=== PATIENT | female | born 1960 | race American Indian/Alaskan Native ===

== ENCOUNTER 2021-03-06 23:22 | Inpatient (IN) | payer MEDICARE ==
--- NOTE | 2021-03-06 23:26 | Emergency Department Report ---
ED Neuro Deficit HPI - General Chief Complaint: Weakness Stated Complaint: STROKE LIKE SYMPTOMS Time Seen by Provider: 03/06/21 23:23 Source: patient, family, EMS (Verbal report received from emergency medical services. EMS documentation not available at time of chart dictation ), RN notes reviewed Mode of arrival: Stretcher Limitations: Altered Mental Status, Physical Limitation - History of Present Illness Initial Comments: The patient was evaluated in the emergency department for symptoms described in the history of present illness. He/she was evaluated in the context of the global COVID-19 pandemic, which necessitated consideration that the patient might be at risk for infection with the virus that causes COVID-19. Institutional protocols and algorithms that pertain to the evaluation of patients at risk for COVID-19 are in a state of rapid change based on information released by regulatory bodies including the CDC and federal and stat e organizations. These policies and algorithms were followed during the patient's care in the emergency department. Please note that these policies, procedures and recommendations changed on a rapid basis. History primarily obtained by speaking to patient's daughter, Ms. Gomez; [phone] (patient also has a son, Mr. Delarosa/[phone].) The patient is a 61-year-old female. Her past medical history includes bilateral upper extremity humerus fractures as per EMS, hypertension, high cholesterol and seizure. Current seizure medications include gabapentin, 300, twice daily, Keppra, 1 g, uncertain frequency, phenytoin, 300 mg daily, valproic acid, 750 mg every 8 hours, and Vimpat, 200 mg, of uncertain frequency. The patient is brought to the hospital by emergency medical services today as a possible code stroke. As per her daughter, the patient was in her usual state of health today, when she had an unwitnessed seizure. The patient's last known well time as per the daughter is not o'clock p.m. EMS tells us that patient's last known well time is 1:00 PM. The patient's daughter states that the patient had a seizure, and afterwards, became altered and poorly responsive. She states that prior to the seizure, the patient has had no headache, fever, nausea, vomiting or diarrhea. The patient is COVID-19 vaccinated. The patient has been living with her daughter for the past month. The patient's daughter states that the patient's previous seizure was a few months ago. The patient was reportedly admitted to [facility] a few months ago for seizures. The patient herself is awake, but altered. She is not able to describe the qualitative nature of symptoms, exacerbating factors, relieving factors or aggravating factors. Of note, when examined, patient withdraws and moves 4 extremities vigorously in response to pinch and noxious stimuli. EMS reports normal Accu-Chek in the field. -: This evening Location: speech, right arm, right leg, altered Presenting Symptoms: Present: Altered Mental Status History of same: Yes Severity: Unable to Determine - Related Data Allergies/Adverse Reactions: Allergies Allergy/AdvReac Type Severity Reaction Status Date / Time No Known Allergies Allergy Verified 03/07/21 01:01 ED Review of Systems ROS: Stated complaint: STROKE LIKE SYMPTOMS Other details as noted in HPI Comment: Unobtainable due to pts medical conditions (Review of systems as per daughter) Constitutional: denies: fever Respiratory: cough (Chronic) Cardiovascular: denies: syncope Gastrointestinal: denies: nausea, vomiting, diarrhea Genitourinary: as per HPI Neurological: confusion ED Neuro Physical Exam - General Limitations: Altered Mental Status, Physical Limitation General appearance: anxious, in distress, obese Suspected Stroke: No - Head Head exam: Present: atraumatic, normocephalic - Eye Eye exam: Present: normal appearance, EOMI - ENT ENT exam: Present: normal exam, normal orophraynx, mucous membranes moist, normal external ear exam, other (Patient has poor dentition) - Neck Neck exam: Present: normal inspection, full ROM. Absent: tenderness, meningismus - Respiratory Respiratory exam: Present: rhonchi. Absent: wheezes, rales, stridor - Cardiovascular Cardiovascular Exam: Present: regular rate, normal rhythm, normal heart sounds. Absent: bradycardia, tachycardia, irregular rhythm, systolic murmur, diastolic murmur, rubs, gallop - GI/Abdominal GI/Abdominal exam: Present: soft. Absent: distended, tenderness, guarding, rebound, rigid, pulsatile mass - Extremities Exam Extremities exam: Present: full ROM, other (2+ pulses noted in the bilateral upper and lower extremities. There is no pelvic instability.). Absent: normal inspection (Chronic appearing deformities to the bilateral upper extremities), tenderness, calf tenderness - Back Exam Back exam: Present: normal inspection. Absent: tenderness, CVA tenderness (R), CVA tenderness (L), paraspinal tenderness, vertebral tenderness - Neurological Exam Neurological exam: Present: altered, other (The patient is awake. The patient moves 4 extremities. Sensation is intact to pinch in 4 extremities. Uncertain if left-sided facial droop.) - NIHSS Assessment Interval: Baseline 1a. Level of Consciousness: arousable/minor stimuli 1b. LOC Questions: answers no questions correctly 1c. LOC Commands: performs no tasks correctly 2. Best Gaze: normal (Unable to assess) 3. Visual: no visual loss (Blinks in response to threat) 4. Facial Palsy: minor paralysis (Left-sided paralysis) 5b. Motor Arm Right: drift 5a. Motor Arm Left: drift 6a. Motor Leg Left: drift 6b. Motor Leg Right: drift 7. Limb Ataxia: amputation (Unable to assess) 8. Sensory: mild/moderate sensory loss 9. Best Language: mild/moderate aphasia 10. Dysarthria: mild/moderate dysarthria 11. Extinction/Inattention: visual/tactile inattention Total Score: 14 Stroke Severity: Moderate Stroke - Psychiatric Psychiatric exam: Present: normal affect, normal mood - Skin Skin exam: Present: warm, dry, intact, normal color. Absent: rash ED Course Vital Signs 03/07/21 00:30 Temperature 95.9 F L Pulse Rate 78 Respiratory 18 Rate Blood Pressure 154/116 [Left] O2 Sat by Pulse 100 Oximetry - Reevaluation(s) Reevaluation #1: 03/06/21 23:47 Differential diagnosis, including but not limited to: Seizure, postictal state, pneumonia, urinary tract infection, subtherapeutic AED, subacute stroke, electrolyte derangement Assessment and plan: 61-year-old female who was brought to the hospital by emergency medical services as a possible code stroke. I obtain collateral information from the patient's family. They state the patient was in her usual state of health, and then had a seizure, and had a change in mental status. Therefore, this patient is unlikely to be having a stroke, and more likely to have had a seizure, and to be experiencing a postictal state. Her motor examination is not suggestive of ischemic stroke, as she withdraws and moves 4 extremities vigorously in response to painful/noxious stimuli. In addition, last known well time is unclear, EMS tells us 1:00 PM, family thinks it is 9:00 PM, but not certain. Patient seen and evaluated by stroke neurology, Dr. Rebekah Adame. We will obtain noncontrast CT scan of the brain, and CT angiogram head and neck. We will obtain appropriate laboratory studies, urinalysis, EKG, and initiate sei zure precautions. We do anticipate admission to the medical service for supportive care. Given the aforementioned considerations, we consider this patient to be not suitable or appropriate for TPA. Reassess after initial data points. Received verbal report that noncontrast CT scan of the brain is negative for acute findings at this time. 03/07/21 00:27 The patient is reassessed. She is awake and alert to name. She states that she is cold. She is moving 4 extremities vigorously. Her sensation is intact to light touch in 4 extremities. There is no obvious facial droop. Awaiting laboratory studies, urinalysis, remainder of diagnostics. Reevaluation #2: 03/07/21 00:46 Mental status remains improved. Laboratory studies demonstrate evidence of dehydration, hyponatremia, hypomagnesemia, subtherapeutic valproic acid level, as well as phenytoin level. I suspect that hyponatremia is hypovolemic hyponatremia. X-ray the chest suggest right lower lobe atelectasis versus infiltrate. Given seizure, rhonchi, chest x-ray findings, we will start antibiotics empirically. We will administer sodium chloride normal saline for hyponatremia. We will also order phenytoin, valproic acid, and magnesium sulfate supplementation. CT angiogram of the neck negative for findings that would require transfer for endovascular intervention. Awaiting CT angiogram interpretation of the brain. 03/07/21 01:01 03/07/21 01:01 CTA head negative for acute findings. Hospital physician, Dr. Lexy Hernandez to admit to [facility] 03/07/21 01:03 Rectal temperature reviewed and appreciated. Suspect environmental hypothermia. Active patient rewarming ordered. - Lab Data Result diagrams: 03/06/21 23:56 03/06/21 23:56 Lab Results 03/06/21 03/06/21 03/06/21 Range/Units 23:56 23:56 23:56 WBC 7.4 (4.5-11.0) K/mm3 RBC 3.63 L (3.65-5.03) M/mm3 Hgb 11.2 (10.1-14.3) gm/dl Hct 34.3 (30.3-42.9) % MCV 95 (79-97) fl MCH 31 (28-32) pg MCHC 33 (30-34) % RDW 14.0 (13.2-15.2) % Plt Count 228 (140-440) K/mm3 Lymph % (Auto) 17.3 (13.4-35.0) % [place] % (Auto) 7.4 H (0.0-7.3) % Eos % (Auto) 0.5 (0.0-4.3) % Baso % (Auto) 0.1 (0.0-1.8) % Lymph # (Auto) 1.3 (1.2-5.4) K/mm3 [place] # (Auto) 0.5 (0.0-0.8) K/mm3 Eos # (Auto) 0.0 (0.0-0.4) K/mm3 Baso # (Auto) 0.0 (0.0-0.1) K/mm3 Seg Neutrophils % 74.7 H (40.0-70.0) % Seg Neutrophils # 5.5 (1.8-7.7) K/mm3 PT 13.3 (12.2-14.9) Sec. INR 0.91 (0.87-1.13) APTT 29.7 (24.2-36.6) Sec. Thrombin Time 17.2 (15.1-19.6) Sec. Sodium 125 L (137-145) mmol/L Potassium 3.7 (3.6-5.0) mmol/L Chloride 89.7 L (98-107) mmol/L Carbon Dioxide 23 (22-30) mmol/L Anion Gap 16 mmol/L BUN 7 (7-17) mg/dL Creatinine 0.5 L (0.6-1.2) mg/dL Estimated GFR > 60 ml/min BUN/Creatinine Ratio 14 % Glucose 123 H (65-100) mg/dL Calcium 8.6 (8.4-10.2) mg/dL Magnesium (1.7-2.3) mg/dL Total Bilirubin < 0.20 (0.1-1.2) mg/dL AST 13 (5-40) units/L ALT 5 L (7-56) units/L Alkaline Phosphatase 336 H (35-129) units/L Ammonia (25-60) umol/L Total Creatine Kinase 69 (30-135) units/L CK-MB (CK-2) 1.6 (0.0-4.0) ng/mL CK-MB (CK-2) Rel Index 2.3 (0-4) Troponin T < 0.010 (0.00-0.029) ng/mL Total Protein 6.8 (6.3-8.2) g/dL Albumin 3.6 L (3.9-5) g/dL Albumin/Globulin Ratio 1.1 % TSH (0.270-4.200) mlU/mL Urine Bilirubin (Negative) Urine RBC (Auto) (0.0-6.0) /HPF U Epithel Cells (Auto) (0-13.0) /HPF Phenytoin (10.0-20.0) ug/mL Valproic Acid (50-100) ug/mL Plasma/Serum Alcohol (0-0.07) % 03/06/21 03/06/21 03/06/21 Range/Units 23:56 23:56 23:56 WBC (4.5-11.0) K/mm3 RBC (3.65-5.03) M/mm3 Hgb (10.1-14.3) gm/dl Hct (30.3-42.9) % MCV (79-97) fl MCH (28-32) pg MCHC (30-34) % RDW (13.2-15.2) % Plt Count (140-440) K/mm3 Lymph % (Auto) (13.4-35.0) % Morehouse % (Auto) (0.0-7.3) % Eos % (Auto) (0.0-4.3) % Baso % (Auto) (0.0-1.8) % Lymph # (Auto) (1.2-5.4) K/mm3 Morehouse # (Auto) (0.0-0.8) K/mm3 Eos # (Auto) (0.0-0.4) K/mm3 Baso # (Auto) (0.0-0.1) K/mm3 Seg Neutrophils % (40.0-70.0) % Seg Neutrophils # (1.8-7.7) K/mm3 PT (12.2-14.9) Sec. INR (0.87-1.13) APTT (24.2-36.6) Sec. Thrombin Time (15.1-19.6) Sec. Sodium (137-145) mmol/L Potassium (3.6-5.0) mmol/L Chloride (98-107) mmol/L Carbon Dioxide (22-30) mmol/L Anion Gap mmol/L BUN (7-17) mg/dL Creatinine (0.6-1.2) mg/dL Estimated GFR ml/min BUN/Creatinine Ratio % Glucose (65-100) mg/dL Calcium (8.4-10.2) mg/dL Magnesium 1.40 L (1.7-2.3) mg/dL Total Bilirubin (0.1-1.2) mg/dL AST (5-40) units/L ALT (7-56) units/L Alkaline Phosphatase (35-129) units/L Ammonia 20.0 L (25-60) umol/L Total Creatine Kinase (30-135) units/L CK-MB (CK-2) (0.0-4.0) ng/mL CK-MB (CK-2) Rel Index (0-4) Troponin T (0.00-0.029) ng/mL Total Protein (6.3-8.2) g/dL Albumin (3.9-5) g/dL Albumin/Globulin Ratio % TSH (0.270-4.200) mlU/mL Urine Bilirubin (Negative) Urine RBC (Auto) (0.0-6.0) /HPF U Epithel Cells (Auto) (0-13.0) /HPF Phenytoin (10.0-20.0) ug/mL Valproic Acid (50-100) ug/mL Plasma/Serum Alcohol < 0.01 (0-0.07) % 03/06/21 03/06/21 03/07/21 Range/Units 23:56 23:56 Unknown WBC (4.5-11.0) K/mm3 RBC (3.65-5.03) M/mm3 Hgb (10.1-14.3) gm/dl Hct (30.3-42.9) % MCV (79-97) fl MCH (28-32) pg MCHC (30-34) % RDW (13.2-15.2) % Plt Count (140-440) K/mm3 Lymph % (Auto) (13.4-35.0) % Morehouse % (Auto) (0.0-7.3) % Eos % (Auto) (0.0-4.3) % Baso % (Auto) (0.0-1.8) % Lymph # (Auto) (1.2-5.4) K/mm3 Morehouse # (Auto) (0.0-0.8) K/mm3 Eos # (Auto) (0.0-0.4) K/mm3 Baso # (Auto) (0.0-0.1) K/mm3 Seg Neutrophils % (40.0-70.0) % Seg Neutrophils # (1.8-7.7) K/mm3 PT (12.2-14.9) Sec. INR (0.87-1.13) APTT (24.2-36.6) Sec. Thrombin Time (15.1-19.6) Sec. Sodium (137-145) mmol/L Potassium (3.6-5.0) mmol/L Chloride (98-107) mmol/L Carbon Dioxide (22-30) mmol/L Anion Gap mmol/L BUN (7-17) mg/dL Creatinine (0.6-1.2) mg/dL Estimated GFR ml/min BUN/Creatinine Ratio % Glucose (65-100) mg/dL Calcium (8.4-10.2) mg/dL Magnesium (1.7-2.3) mg/dL Total Bilirubin (0.1-1.2) mg/dL AST (5-40) units/L ALT (7-56) units/L Alkaline Phosphatase (35-129) units/L Ammonia (25-60) umol/L Total Creatine Kinase (30-135) units/L CK-MB (CK-2) (0.0-4.0) ng/mL CK-MB (CK-2) Rel Index (0-4) Troponin T (0.00-0.029) ng/mL Total Protein (6.3-8.2) g/dL Albumin (3.9-5) g/dL Albumin/Globulin Ratio % TSH 2.710 (0.270-4.200) mlU/mL Urine Bilirubin Neg (Negative) Urine RBC (Auto) < 1.0 (0.0-6.0) /HPF U Epithel Cells (Auto) 1.0 (0-13.0) /HPF Phenytoin 6.4 L (10.0-20.0) ug/mL Valproic Acid < 2.8 L (50-100) ug/mL Plasma/Serum Alcohol (0-0.07) % Lab Results 03/06/21 03/06/21 03/06/21 Range/Units 23:56 23:56 23:56 WBC 7.4 (4.5-11.0) K/mm3 RBC 3.63 L (3.65-5.03) M/mm3 Hgb 11.2 (10.1-14.3) gm/dl Hct 34.3 (30.3-42.9) % MCV 95 (79-97) fl MCH 31 (28-32) pg MCHC 33 (30-34) % RDW 14.0 (13.2-15.2) % Plt Count 228 (140-440) K/mm3 Lymph % (Auto) 17.3 (13.4-35.0) % [place]house % (Auto) 7.4 H (0.0-7.3) % Eos % (Auto) 0.5 (0.0-4.3) % Baso % (Auto) 0.1 (0.0-1.8) % Lymph # (Auto) 1.3 (1.2-5.4) K/mm3 [place] # (Auto) 0.5 (0.0-0.8) K/mm3 Eos # (Auto) 0.0 (0.0-0.4) K/mm3 Baso # (Auto) 0.0 (0.0-0.1) K/mm3 Seg Neutrophils % 74.7 H (40.0-70.0) % Seg Neutrophils # 5.5 (1.8-7.7) K/mm3 PT 13.3 (12.2-14.9) Sec. INR 0.91 (0.87-1.13) APTT 29.7 (24.2-36.6) Sec. Thrombin Time 17.2 (15.1-19.6) Sec. Sodium 125 L (137-145) mmol/L Potassium 3.7 (3.6-5.0) mmol/L Chloride 89.7 L (98-107) mmol/L Carbon Dioxide 23 (22-30) mmol/L Anion Gap 16 mmol/L BUN 7 (7-17) mg/dL Creatinine 0.5 L (0.6-1.2) mg/dL Estimated GFR > 60 ml/min BUN/Creatinine Ratio 14 % Glucose 123 H (65-100) mg/dL Calcium 8.6 (8.4-10.2) mg/dL Magnesium (1.7-2.3) mg/dL Total Bilirubin < 0.20 (0.1-1.2) mg/dL AST 13 (5-40) units/L ALT 5 L (7-56) units/L Alkaline Phosphatase 336 H (35-129) units/L Ammonia (25-60) umol/L Total Creatine Kinase 69 (30-135) units/L CK-MB (CK-2) 1.6 (0.0-4.0) ng/mL CK-MB (CK-2) Rel Index 2.3 (0-4) Troponin T < 0.010 (0.00-0.029) ng/mL Total Protein 6.8 (6.3-8.2) g/dL Albumin 3.6 L (3.9-5) g/dL Albumin/Globulin Ratio 1.1 % TSH (0.270-4.200) mlU/mL Urine Bilirubin (Negative) Urine RBC (Auto) (0.0-6.0) /HPF U Epithel Cells (Auto) (0-13.0) /HPF Phenytoin (10.0-20.0) ug/mL Valproic Acid (50-100) ug/mL Plasma/Serum Alcohol (0-0.07) % 03/06/21 03/06/21 03/06/21 Range/Units 23:56 23:56 23:56 WBC (4.5-11.0) K/mm3 RBC (3.65-5.03) M/mm3 Hgb (10.1-14.3) gm/dl Hct (30.3-42.9) % MCV (79-97) fl MCH (28-32) pg MCHC (30-34) % RDW (13.2-15.2) % Plt Count (140-440) K/mm3 Lymph % (Auto) (13.4-35.0) % [place]house % (Auto) (0.0-7.3) % Eos % (Auto) (0.0-4.3) % Baso % (Auto) (0.0-1.8) % Lymph # (Auto) (1.2-5.4) K/mm3 [place] # (Auto) (0.0-0.8) K/mm3 Eos # (Auto) (0.0-0.4) K/mm3 Baso # (Auto) (0.0-0.1) K/mm3 Seg Neutrophils % (40.0-70.0) % Seg Neutrophils # (1.8-7.7) K/mm3 PT (12.2-14.9) Sec. INR (0.87-1.13) APTT (24.2-36.6) Sec. Thrombin Time (15.1-19.6) Sec. Sodium (137-145) mmol/L Potassium (3.6-5.0) mmol/L Chloride (98-107) mmol/L Carbon Dioxide (22-30) mmol/L Anion Gap mmol/L BUN (7-17) mg/dL Creatinine (0.6-1.2) mg/dL Estimated GFR ml/min BUN/Creatinine Ratio % Glucose (65-100) mg/dL Calcium (8.4-10.2) mg/dL Magnesium 1.40 L (1.7-2.3) mg/dL Total Bilirubin (0.1-1.2) mg/dL AST (5-40) units/L ALT (7-56) units/L Alkaline Phosphatase (35-129) units/L Ammonia 20.0 L (25-60) umol/L Total Creatine Kinase (30-135) units/L CK-MB (CK-2) (0.0-4.0) ng/mL CK-MB (CK-2) Rel Index (0-4) Troponin T (0.00-0.029) ng/mL Total Protein (6.3-8.2) g/dL Albumin (3.9-5) g/dL Albumin/Globulin Ratio % TSH (0.270-4.200) mlU/mL Urine Bilirubin (Negative) Urine RBC (Auto) (0.0-6.0) /HPF U Epithel Cells (Auto) (0-13.0) /HPF Phenytoin (10.0-20.0) ug/mL Valproic Acid (50-100) ug/mL Plasma/Serum Alcohol < 0.01 (0-0.07) % 03/06/21 03/06/21 03/07/21 Range/Units 23:56 23:56 Unknown WBC (4.5-11.0) K/mm3 RBC (3.65-5.03) M/mm3 Hgb (10.1-14.3) gm/dl Hct (30.3-42.9) % MCV (79-97) fl MCH (28-32) pg MCHC (30-34) % RDW (13.2-15.2) % Plt Count (140-440) K/mm3 Lymph % (Auto) (13.4-35.0) % [place]house % (Auto) (0.0-7.3) % Eos % (Auto) (0.0-4.3) % Baso % (Auto) (0.0-1.8) % Lymph # (Auto) (1.2-5.4) K/mm3 [place] # (Auto) (0.0-0.8) K/mm3 Eos # (Auto) (0.0-0.4) K/mm3 Baso # (Auto) (0.0-0.1) K/mm3 Seg Neutrophils % (40.0-70.0) % Seg Neutrophils # (1.8-7.7) K/mm3 PT (12.2-14.9) Sec. INR (0.87-1.13) APTT (24.2-36.6) Sec. Thrombin Time (15.1-19.6) Sec. Sodium (137-145) mmol/L Potassium (3.6-5.0) mmol/L Chloride (98-107) mmol/L Carbon Dioxide (22-30) mmol/L Anion Gap mmol/L BUN (7-17) mg/dL Creatinine (0.6-1.2) mg/dL Estimated GFR ml/min BUN/Creatinine Ratio % Glucose (65-100) mg/dL Calcium (8.4-10.2) mg/dL Magnesium (1.7-2.3) mg/dL Total Bilirubin (0.1-1.2) mg/dL AST (5-40) units/L ALT (7-56) units/L Alkaline Phosphatase (35-129) units/L Ammonia (25-60) umol/L Total Creatine Kinase (30-135) units/L CK-MB (CK-2) (0.0-4.0) ng/mL CK-MB (CK-2) Rel Index (0-4) Troponin T (0.00-0.029) ng/mL Total Protein (6.3-8.2) g/dL Albumin (3.9-5) g/dL Albumin/Globulin Ratio % TSH 2.710 (0.270-4.200) mlU/mL Urine Bilirubin Neg (Negative) Urine RBC (Auto) < 1.0 (0.0-6.0) /HPF U Epithel Cells (Auto) 1.0 (0-13.0) /HPF Phenytoin 6.4 L (10.0-20.0) ug/mL Valproic Acid < 2.8 L (50-100) ug/mL Plasma/Serum Alcohol (0-0.07) % - EKG Data -: EKG Interpreted by Ar EKG shows normal: sinus rhythm Rate: normal 03/07/21 00:27 The EKG is interpreted 12: 05 Sinus rhythm, 78 bpm. Normal axis. Normal P wave axis. QTC 444 ms. Poor R wave progression. Motion artifact. Abnormal EKG. Not a STEMI. - Radiology Data Radiology results: pending, report reviewed, image reviewed CT HEAD WITHOUT CONTRAST INDICATION / CLINICAL INFORMATION: CODE STROKE PROTOCOL!!! Stroke-Like symptoms. TECHNIQUE: All CT scans at this location are performed using CT dose reduction for ALARA by means of automated exposure control. COMPARISON: None available. FINDINGS: No acute intracranial hemorrhage. Ventricles are normal in size without midline shift or mass effect. There is extensive periventricular central white matter areas of low- attenuation. Low-attenuation extends to the frontal lobes bilaterally left slightly greater than right. ADDITIONAL FINDINGS: None. IMPRESSION: 1. Diffuse periventricular and central white matter areas of low-attenuation cysts and chronic small vessel disease. There is a low-attenuation center the frontal lobes bilaterally left greater than right and into the left parietal region. Acute ischemia cannot be excluded however this also could represent chronic small vessel disease. MRI with diffusion could be performed if indicated. === CODE STROKE: Time of Communication ([employer]/CDT): 1045 Licensed Practitioner Receiving Report: [place] Signer Name: Torin De León MD Signed: 03/06/2021 10:47 PM Workstation Name: [id number] [place] [address] XRay Report Signed Patient: COOPER FREDERICK MR#: [id number] 4 : 1960 Acct:[id number] Age/Sex: 61 / F ADM Date: 03/06/21 Loc: ED Attending Dr: Ordering Physician: LISA RAPP MD Date of Service: 03/06/21 Procedure(s): XR chest 1V ap Accession Number(s): [id number] cc: LISA RAPP MD Fluoro Time In Minutes: CHEST 1 VIEW 03/07/2021 12:17 AM INDICATION / CLINICAL INFORMATION: cva weakness ams. COMPARISON: None available. FINDINGS: SUPPORT DEVICES: None. HEART / MEDIASTINUM: No significant abnormality. LUNGS / PLEURA: There is right lower lung atelectasis/infiltrate. Mild increased interstitial prominence within the right lung. No pneumothorax. Signer Name: Torin De León MD Signed: 03/07/2021 12:26 AM Workstation Name: [id number] Transcribed By: CW Dictated By: VALERIE DE LEÓN MD Electronically Authenticated By: VALERIE DE LEÓN MD Signed Date/Time: 03/07/2125 DD/ [address] [address] Cat Scan Report Signed Patient: COOPER FREDERICK MR#: [id number] 4 : 1960 Acct:[id number] Age/Sex: 61 / F ADM Date: 03/06/21 Loc: ED Attending Dr: Ordering Physician: LISA RAPP MD Date of Service: 03/06/21 Procedure(s): CT angio neck Accession Number(s): [id number] cc: LISA RAPP MD CTA NECK WITH CONTRAST HISTORY: Stroke like symptoms COMPARISON: None. TECHNIQUE: Routine CTA of the neck was performed. 3-D/MIP reformats were postprocessed. Percentage stenosis is determined by direct quantitative measurements of diseased internal carotid artery diameter compared with normal distal internal carotid artery reference segments or by criteria similar to NASCET where applicable.All CT scans at this location are performed using CT dose reduction for ALARA by means of automated exposure control CONTRAST: 100 ml of Omnipaque 350 FINDINGS: Aortic arch: No significant abnormality. Cervical vertebral arteries: No significant abnormality. Common carotid arteries: No significant abnormality. Carotid bifurcations: Right carotid bifurcation: Calcified atheromatous plaque with approximately 30% stenoses at the origin of right internal carotid artery at Carotid bifurcation: Atheromatous plaque with approximately 40% stenoses in the proximal left internal carotid artery Cervical internal carotid arteries: No significant abnormality. Additional findings: None. IMPRESSION: Right Carotid bifurcation: Calcified atheromatous plaque with approximately 30% stenoses in the proximal right internal carotid artery Left carotid bifurcation: Atheromatous plaque with approximately 40% stenoses in the proximal left internal carotid artery Signer Name: Bill Aguirre MD Signed: 03/07/2021 12:37 AM Workstation Name: [id number] Transcribed By: BS Dictated By: Bill Galan MD Electronically Authenticated By: Bill Galan MD Signed Date/Time: 03/07/2136 DD/ [facility] [address] [place] [address] Cat Scan Report Signed Patient: COOPER FREDERICK MR#: [id number] 4 : 1960 Acct:[id number] Age/Sex: 61 / F ADM Date: 03/06/21 Loc: ED Attending Dr: Davon sandhu Physician: LISA RAPP MD Date of Service: 03/06/21 Procedure(s): CT angio head Accession Number(s): [id number] cc: LISA RAPP MD CTA HEAD WITH CONTRAST HISTORY: "Stroke COMPARISON: None. TECHNIQUE: Routine non-contrast CT Head, CTA of the head and post-contrast CT Head are performed. 3-D/MIP reformats postprocessed. All CT scans at this location are performed using CT dose reduction for ALARA by means of automated exposure control CONTRAST: 100 ml of Omnipaque 350 FINDINGS: CTA Head: Intracranial vertebral arteries: No significant abnormality. Basilar artery: No significant abnormality. Posterior cerebral arteries: No significant abnormality. Intracranial internal carotid a rteries: No significant abnormality. Anterior cerebral arteries: No significant abnormality. Middle cerebral arteries: No significant abnormality. Dural venous sinuses:Not optimally opacified. No significant abnormality. Additional findings: None. IMPRESSION: 1. No significant abnormality. Signer Name: Bill Aguirre MD Signed: 03/07/2021 12:40 AM Workstation Name: [id number] Transcribed By: BS Dictated By: Bill Galan MD Electronically Authenticated By: Bill Galan MD Signed Date/Time: 03/07/2139 DD/ - Core Measures Measure Exclusions: not indicated - Thrombolytic Inclusion/Exclusion Thrombolytic Exclusion Criteria: Onset of Symptoms Unknown Thrombolytic Contraindications: Rapidily Improving s/s Critical care attestation.: If time is entered above; I have spent that time in minutes in the direct care of this critically ill patient, excluding procedure time. ED Disposition Clinical Impression: Seizure, Acute encephalopathy, Hyponatremia, Hypomagnesemia, On valproic acid therapy, Subtherapeutic phenytoin level Disposition: 09 ADMITTED INPATIENT Is pt being admited?: Yes Does the pt Need Aspirin: No Condition: Good
[2021-03-06] MEDS ORDERED: levETIRAcetam 1000 MG/NS 0.75% 1,000 MG/100 ML BAG IV ONE (23:49)
--- NOTE | 2021-03-06 23:52 | Emergency Department Report ---
Blank Doc - Documentation Documentation: [place] [facility] Consult Note # Demographics Consult Type: General Neurology Patient Location: Emergency Room First Name: Lynnette Last Name: Jim Gender: Female Facility: [facility] Time of Initial Page ( Time): 03/06/2021, 23:23 Time of Return Call ( Time): 03/06/2021, 23:23 # HPI History: 62yo F was last well at at an unclear time, probably today around 1300 or before, family walked in around 2230 and saw pt having a seizure. pt has a h/o seizure. 1300 was having right sided weakness noted to have a left facial droop by EMS Context/Pre-existing conditions: unknown weakness # Scores Time of exam and NIHSS (): 03/06/2021, 23:23 Level of Consciousness 1a: [0] = Alert; keenly responsive LOC Questions 1b: [2] = Answers neither correctly LOC Commands 1c: [2] = Performs neither correctly Best Gaze 2: [0] = Normal Visual 3: [0] = No visual loss Facial Palsy 4: [1] = Minor paralysis Motor Arm Left 5a: [3] = No effort against gravity Motor Arm Right 5b: [3] = No effort against gravity Motor Leg Left 6a: [3] = No effort against gravity Motor Leg Right 6b: [3] = No effort against gravity Limb Ataxia 7: [0] = Absent Sensory 8: [0] = Normal Best Language 9: [0] = No aphasia Dysarthria 10: [1] = [id number] dysarthria Extinction and Inattention 11: [0] = No abnormality NIHSS Total: 18 # Exam SBP: 179 DBP: 114 # PMH-FH-SH Past Medical History: hypertension seizure stroke # Data Head CT: no bleed preliminarily reviewed by me, please refer to radiology read for official reading # Assessment Impression: Seizure # Plan Thrombolytic/Intervention: NOT IV Thrombolysis or IA Intervention candidate Thrombolytic Exclusion: > 4.5 hours Thrombolytic/Intraarterial Exclusion: IV thrombolytic and IA intervention considered but not recommended as this patient's symptoms are not clinically consistent with an assumed diagnosis of stroke Imaging: (urgency: STAT): CT Angiogram Head and CT Angiogram Neck AND call back with results if abnormal Other: I have discussed my recommendations with the referring provider Additional Recommendations: obtain more info about AEDs. may need EEG if not improving clinically after seizure # Logistics Telemedicine: Interactive 2 way audio and visual telecommunication technology was utilized during this visit
--- NOTE | 2021-03-06 23:52 | Cat Scan Report ---
. CT HEAD WITHOUT CONTRAST INDICATION / CLINICAL INFORMATION: CODE STROKE PROTOCOL!!! Stroke-Like symptoms. TECHNIQUE: All CT scans at this location are performed using CT dose reduction for ALARA by means of automated e xposure control. COMPARISON: None available. FINDINGS: No acute intracranial hemorrhage. Ventricles are normal in size without midline shift or mass effect. There is extensive periventricular central white matter areas of low-attenuation. Low-attenuation ex tends to the frontal lobes bilaterally left slightly greater than right. ADDITIONAL FINDINGS: None. IMPRESSION: 1. Diffuse periventricular and central white matter areas of low-attenuation cysts and chronic small vessel disease. There is a low-attenuation center the frontal lobes bilaterally left greater than rig ht and into the left parietal region. Acute ischemia cannot be excluded however this also could repre sent chronic small vessel disease. MRI with diffusion could be performed if indicated. CODE STROKE: Time of Communication (CHARGE AIDE/CDT): 1045 Licensed Practitioner Receiving Report: [place] Signer Name: Torin De León MD Signed: 03/06/2021 11:47 PM Workstation Name: [id number]
--- NOTE | 2021-03-07 00:30 | XRay Report ---
CHEST 1 VIEW 03/07/2021 12:17 AM INDICATION / CLINICAL INFORMATION: cva weakness ams. COMPARISON: None available. FINDINGS: SUPPORT DEVICES: None. HEART / MEDIASTINUM: No significant abnormality. LUNGS / PLEURA: There is right lower lung atelectasis/infiltrate. Mild increased interstitial promine nce within the right lung. No pneumothorax. Signer Name: Troin De Lenó MD Signed: 03/07/2021 12:26 AM Workstation Name: [id number]
[2021-03-07 00:34] LABS: Basophils % (Auto) 0.1 % (0.0-1.8); Eosinophils % (Auto) 0.5 % (0.0-4.3); Hematocrit 34.3 % (30.3-42.9); Hemoglobin 11.2 gm/dl (10.1-14.3); Lymphocytes # (Auto) 1.3 K/mm3 (1.2-5.4); Lymphocytes % (Auto) 17.3 % (13.4-35.0); Mean Corpuscular HGB Conc 33 % (30-34); Mean Corpuscular Volume 95 fl (79-97); Monocytes # (Auto) 0.5 K/mm3 (0.0-0.8); Monocytes % (Auto) 7.4 % (0.0-7.3); Platelet Count 228 K/mm3 (140-440); Red Blood Count 3.63 M/mm3 (3.65-5.03)
[2021-03-07 00:36] LABS: Creatine Kinase MB 1.6 ng/mL (0.0-4.0)
[2021-03-07 00:38] LABS: Alanine Aminotransferase 5 units/L (7-56); Albumin 3.6 g/dL (3.9-5); Blood Urea Nitrogen 7 mg/dL (7-17); Calcium 8.6 mg/dL (8.4-10.2); Hemolysis Index 4
[2021-03-07 00:41] LABS: BUN/Creatinine Ratio 14
--- NOTE | 2021-03-07 00:41 | Cat Scan Report ---
CTA NECK WITH CONTRAST HISTORY: Stroke like symptoms COMPARISON: None. TECHNIQUE: Routine CTA of the neck was performed. 3-D/MIP reformats were postprocessed. Percentage s tenosis is determined by direct quantitative measurements of diseased internal carotid artery diamete r compared with normal distal internal carotid artery reference segments or by criteria similar to NA SCET where applicable.All CT scans at this location are performed using CT dose reduction for ALARA b y means of automated exposure control CONTRAST: 100 ml of Omnipaque 350 FINDINGS: Aortic arch: No significant abnormality. Cervical vertebral arteries: No significant abnormality. Common carotid arteries: No significant abnormality. Carotid bifurcations: Right carotid bifurcation: Calcified atheromatous plaque with approximately 30% stenoses at the origi n of right internal carotid artery at Carotid bifurcation: Atheromatous plaque with approximately 40% stenoses in the proximal left interna l carotid artery Cervical internal carotid arteries: No significant abnormality. Additional findings: None. IMPRESSION: Right Carotid bifurcation: Calcified atheromatous plaque with approximately 30% stenoses in the proxi mal right internal carotid artery Left carotid bifurcation: Atheromatous plaque with approximately 40% stenoses in the proximal left in ternal carotid artery Signer Name: Bill Aguirre MD Signed: 03/07/2021 12:37 AM Workstation Name: [id number]
[2021-03-07] MEDS ORDERED: cefTRIAXone/NS 1 GM/50 ML 1 GM/50 ML BAG IV ONE (00:44)
[2021-03-07] MEDS ORDERED: AZITHROMYCIN/NS 500 MG/250 ML 500 MG/250 ML BAG IV ONE (00:44)
[2021-03-07] MEDS ORDERED: VALPROATE SODIUM 500 MG in SODIUM CHLORIDE 0.9% 100 ML IV ONE (00:44)
[2021-03-07] MEDS ORDERED: SODIUM CHLORIDE 0.9% 1000 ML 1,000 ML IV ONE (00:44)
--- NOTE | 2021-03-07 00:44 | Cat Scan Report ---
CTA HEAD WITH CONTRAST HISTORY: "Stroke COMPARISON: None. TECHNIQUE: Routine non-contrast CT Head, CTA of the head and post-contrast CT Head are performed. 3-D /MIP reformats postprocessed. All CT scans at this location are performed using CT dose reduction for ALARA by means of automated exposure control CONTRAST: 100 ml of Omnipaque 350 FINDINGS: CTA Head: Intracranial vertebral arteries: No significant abnormality. Basilar artery: No significant abnormality. Posterior cerebral arteries: No significant abnormality. Intracranial internal carotid arteries: No significant abnormality. Anterior cerebral arteries: No significant abnormality. Middle cerebral arteries: No significant abnormality. Dural venous sinuses:Not optimally opacified. No significant abnormality. Additional findings: None. IMPRESSION: 1. No significant abnormality. Signer Name: Bill Aguirre MD Signed: 03/07/2021 12:40 AM Workstation Name: [id number]
[2021-03-07] MEDS ORDERED: PHENYTOIN 1,000 MG in SODIUM CHLORIDE 0.9% 250ML 250 ML IV ONE (00:45)
[2021-03-07] MEDS ORDERED: ASPIRIN 81 MG TAB CHEW PO ONE (00:45)
[2021-03-07 00:46] LABS: INR 0.91 (0.87-1.13); Partial Thromboplastin Time 29.7 Sec. (24.2-36.6); Thrombin Time 17.2 Sec. (15.1-19.6)
[2021-03-07] MEDS ORDERED: MAGNESIUM SULFATE 2 GM/50 ML BAG IV ONE (00:46)
[2021-03-07 00:58] LABS: Bilirubin,Urine NEG (Negative); Blood,Urine NEG (Negative); Color,Urine Straw (Yellow); Mucus,Urine FEW /HPF; Protein,Urine <15 mg/dL mg/dL (Negative); RBC,Urine < 1.0 /HPF (0.0-6.0); Urobilinogen,Urine < 2.0 mg/dL (<2.0)
[2021-03-07 01:06] LABS: Amphetamine Screen,Urine PRESUMPTIVE NEGATIVE; Benzodiazepines Screen,Urine PRESUMPTIVE POSITIVE; Cannabinoid Screen,Urine PRESUMPTIVE NEGATIVE; Cocaine Screen,Urine PRESUMPTIVE NEGATIVE; Methadone Screen,Urine PRESUMPTIVE NEGATIVE; Opiate Screen,Urine PRESUMPTIVE NEGATIVE
[2021-03-07 01:10] LABS: Osmolality,Urine 284 Mosm/kg
[2021-03-07] MEDS ORDERED: ACETAMINOPHEN 325 MG TAB PO PRN (01:22)
[2021-03-07] MEDS ORDERED: ONDANSETRON 4 MG/2 ML INJ IV PRN (01:22)
[2021-03-07] MEDS ORDERED: MAGNESIUM HYDROXIDE (MOM) ORAL LIQD UDC PO PRN (01:29)
[2021-03-07] MEDS ORDERED: MORPHINE 4 MG/1 ML INJ IV PRN (01:29)
--- NOTE | 2021-03-07 01:40 | History and Physical Report ---
History of Present Illness Date of examination: 03/07/21 Date of admission: 03/07/2021 Chief complaint: Seizure disorder Altered mental status History of present illness: 61-year-old -[place] female with known history of hypertension, hyperlipidemia and seizure disorder brought in by EMS today as a possible code stroke. Most of the history was obtained from the ER staff as patient is a little confused and cannot give a good history. According to daughter patient was said to have had an unwitnessed seizure and thereafter patient became altered and became less responsive. There has been no history of fever or chills, no nausea vomiting, no headache or dizziness. Patient has been fully vaccinated against COVID-19. There has been no history of recent travel or sick contacts. Patient was seen by the teleneurologist and recommendations is to have patient worked up for possible seizures. Work-up in the emergency room today reveals multiple electrolyte abnormalities including hypomagnesemia, hyponatremia and subtherapeutic antiseizure medication s including Dilantin and valproic acid. Chest x-ray reveals right lower lobe pneumonia. Patient is being admitted for altered mental status possibly secondary to seizure disorder, electrolyte abnormalities and pneumonia. Past History Past Medical History: hypertension, hyperlipidemia, seizures Past Surgical History: Other (History of bilateral humerus fracture) Social history: other (Unknown) Family history: other (Unknown) Medications and Allergies Allergies Allergy/AdvReac Type Severity Reaction Status Date / Time No Known Allergies Allergy Verified 03/07/21 01:01 Active Meds: Active Medications Acetaminophen (Acetaminophen 325 Mg Tab) 650 mg PO Q4H PRN PRN Reason: Pain MILD(1-3)/Fever >100.5/ABRAMS Azithromycin (Zithromax/Ns) 500 mg in 250 mls @ 250 mls/hr IV ONCE ONE; Protocol Stop: 03/07/21 01:43 Sodium Chloride (Nacl 0.9% 1000 Ml) 1,000 mls @ 999 mls/hr IV BOLUS ONE Stop: 03/07/21 01:44 Last Admin: 03/07/21 01:18 Dose: 999 mls/hr Documented by: Valproate Sodium 500 mg/ (Sodium Chloride) 105 mls @ 100 mls/hr IV ONCE ONE Stop: 03/07/21 01:46 Sodium Chloride (Nacl 0.9% 1000 Ml) 1,000 mls @ 125 mls/hr IV DIRECT SEAN Ceftriaxone Sodium (Rocephin/Ns 2 Gm/100 Ml) 2 gm in 100 mls @ 200 mls/hr IV Q24H SEAN; Protocol Azithromycin (Zithromax/Ns) 500 mg in 250 mls @ 250 mls/hr IV Q24H SEAN; Protocol Magnesium Hydroxide (Magnesium Hydroxide (Mom) Oral Liqd Udc) 30 ml PO Q4H PRN PRN Reason: Constipation Morphine Sulfate (Morphine 2 Mg/1 Ml Inj) 2 mg IV Q4H PRN PRN Reason: Pain, Moderate (4-6) Morphine Sulfate (Morphine 4 Mg/1 Ml Inj) 4 mg IV Q4H PRN PRN Reason: Pain , Severe (7-10) Ondansetron HCl (Ondansetron 4 Mg/2 Ml Inj) 4 mg IV Q8H PRN PRN Reason: Nausea And Vomiting Sodium Chloride (Sodium Chloride 0.9% 10 Ml Flush Syringe) 10 ml IV BID SEAN Sodium Chloride (Sodium Chloride 0.9% 10 Ml Flush Syringe) 10 ml IV PRN PRN PRN Reason: LINE FLUSH Review of Systems ROS unobtainable: due to mental status Exam - Constitutional Vitals: Temp Pulse Resp BP Pulse Ox 95.9 F L 78 18 154/116 100 03/07/21 00:30 03/07/21 00:30 03/07/21 00:30 03/07/21 00:30 03/07/21 00:30 General appearance: Present: no acute distress, well-nourished - EENT Eyes: Present: PERRL, EOM intact. Absent: scleral icterus ENT: hearing intact, clear oral mucosa, dentition normal - Neck Neck: Present: supple, normal ROM - Respiratory Respiratory effort: normal Respiratory: bilateral: CTA - Cardiovascular Rhythm: regular Heart Sounds: Present: S1 & S2. Absent: gallop, systolic murmur, diastolic mur mur, rub, click - Extremities Extremities: no ischemia, pulses intact, pulses symmetrical, No edema, normal temperature, normal color, Full ROM Peripheral Pulses: within normal limits - Abdominal General gastrointestinal: Present: soft, non-tender, non-distended, normal bowel sounds. Absent: mass - Integumentary Integumentary: Present: clear, warm, dry. Absent: rash - Musculoskeletal Musculoskeletal: strength equal bilaterally - Psychiatric Psychiatric: cooperative - Neurologic Neurologic: CNII-XII intact, no focal deficits, moves all extremities, other (Still appears confused) HEART Score - HEART Score Troponin: Troponin T < 0.010 ng/mL (0.00-0.029) 03/06/21 23:56 Results - Labs CBC & Chem 7: 03/06/21 23:56 03/06/21 23:56 Labs: Abnormal lab results 03/06/21 03/06/21 03/06/21 Range/Units 23:56 23:56 23:56 RBC 3.63 L (3.65-5.03) M/mm3 [place] % (Auto) 7.4 H (0.0-7.3) % Seg Neutrophils % 74.7 H (40.0-70.0) % Sodium 125 L (137-145) mmol/L Chloride 89.7 L (98-107) mmol/L Creatinine 0.5 L (0.6-1.2) mg/dL Glucose 123 H (65-100) mg/dL Magnesium 1.40 L (1.7-2.3) mg/dL ALT 5 L (7-56) units/L Alkaline Phosphatase 336 H (35-129) units/L Ammonia (25-60) umol/L Albumin 3.6 L (3.9-5) g/dL Urine Creatinine (0.1-20.0) mg/dL Phenytoin (10.0-20.0) ug/mL Valproic Acid (50-100) ug/mL 03/06/21 03/06/21 03/07/21 Range/Units 23:56 23:56 Unknown RBC (3.65-5.03) M/mm3 [place] % (Auto) (0.0-7.3) % Seg Neutrophils % (40.0-70.0) % Sodium (137-145) mmol/L Chloride (98-107) mmol/L Creatinine (0.6-1.2) mg/dL Glucose (65-100) mg/dL Magnesium (1.7-2.3) mg/dL ALT (7-56) units/L Alkaline Phosphatase (35-129) units/L Ammonia 20.0 L (25-60) umol/L Albumin (3.9-5) g/dL Urine Creatinine 25.0 H (0.1-20.0) mg/dL Phenytoin 6.4 L (10.0-20.0) ug/mL Valproic Acid < 2.8 L (50-100) ug/mL Assessment and Plan - Patient Problems (1) Acute encephalopathy Current Visit: No Status: Acute Plan to address problem: Possibly secondary to post ictal state of seizure disorder. Will monitor mental status. (2) Seizure Current Visit: No Status: Acute Plan to address problem: Patient will be placed on seizure precautions and will resume routine antiseizure medications. Consult placed to neurologist for further evaluation and recommendations. (3) Hypomagnesemia Current Visit: No Status: Acute Plan to address problem: We will replete magnesium and monitor chemistry. (4) Hypertension Current Visit: No Status: Acute Plan to address problem: We will resume routine antihypertensive medications once reconciled and will monitor vital signs closely. (5) Hyponatremia Current Visit: No Status: Acute Plan to address problem: Patient placed on IV fluid normal saline. Will monitor chemistry. (6) Pneumonia Current Visit: Yes Status: Acute Plan to address problem: Patient placed on empiric IV antibiotics. (7) DVT prophylaxis Current Visit: No Status: Acute Plan to address problem: Patient placed on subcutaneous heparin. (8) Full code status Current Visit: No Status: Acute Plan to address problem: Patient is a full code.
[2021-03-07] MEDS: MORPHINE 2 MG/1 ML INJ IV PRN (10:17)
--- NOTE | 2021-03-07 13:10 | Event Note ---
Date: 03/07/21 Patient evaluated this morning. No longer with focal deficits. Denies any complaints. Speech eval ordered. MRI ordered to complete work-up.
[2021-03-07 14:05] LABS: Blood Urea Nitrogen 4 mg/dL (7-17); Calcium 8.5 mg/dL (8.4-10.2); Hemolysis Index 7
[2021-03-07 14:09] LABS: BUN/Creatinine Ratio 8
--- NOTE | 2021-03-07 15:49 | Consultation ---
History of Present Illness Consult date: 03/07/21 Reason for Consult: CVA History of present illness: 61-year-old -[place] female with known history of hypertension, hyperlipidemia and seizure disorder brought in by EMS today as a possible code stroke. Most of the history was obtained from the ER staff as patient is a little confused and cannot give a good history. According to daughter patient was said to have had an unwitnessed seizure and thereafter patient became altered and be came less responsive. There has been no history of fever or chills, no nausea vomiting, no headache or dizziness. Patient has been fully vaccinated against COVID-19. There has been no history of recent travel or sick contacts. Patient was seen by the teleneurologist and recommendations is to have patient worked up for possible seizures. Work-up in the emergency room today reveals multiple electrolyte abnormalities including hypomagnesemia, hyponatremia and subtherapeutic antiseizure medicat ions including Dilantin and valproic acid. Chest x-ray reveals right lower lobe pneumonia. Patient is being admitted for altered mental status possibly secondary to seizure disorder, electrolyte abnormalities and pneumonia. Past History Past Medical History: hypertension, hyperlipidemia, seizures Past Surgical History: Other (History of bilateral humerus fracture) Social history: other (Unknown) Family history: other (Unknown) Medications and Allergies Allergies Allergy/AdvReac Type Severity Reaction Status Date / Time No Known Allergies Allergy Verified 03/07/21 01:01 Home Medications Medication Instructions Recorded Confirmed Last Taken Type AtorvaSTATin [Lipitor] 20 mg PO QHS 03/07/21 03/07/21 03/05/21 History Divalproex [Heather NICHOLSON] 250 mg PO TID 03/07/21 03/07/21 03/05/21 History Duloxetine HCl 20 mg PO QDAY 03/07/21 03/07/21 03/05/21 History Folic Acid 1 mg PO QDAY 03/07/21 03/07/21 03/05/21 History Gabapentin [Neurontin] 300 mg PO BID 03/07/21 03/07/21 03/05/21 History Lacosamide [Vimpat] 200 mg PO BID 03/07/21 03/07/21 03/05/21 History Phenytoin [Dilantin] 300 mg PO QDAY 03/07/21 03/07/21 03/05/21 History Sucralfate [Carafate] 1 gm PO Q6HR 03/07/21 03/07/21 03/05/21 History amLODIPine [Norvasc] 10 mg PO DAILY 03/07/21 03/07/21 03/05/21 History levETIRAcetam [Keppra TAB] 1,000 mg PO BID 03/07/21 03/07/21 03/05/21 History lisinopriL [Zestril TAB] 40 mg PO QDAY 03/07/21 03/07/21 03/05/21 History Active Meds: Active Medications Acetaminophen (Acetaminophen 325 Mg Tab) 650 mg PO Q4H PRN PRN Reason: Pain MILD(1-3)/Fever >100.5/ABRAMS Sodium Chloride (Nacl 0.9% 1000 Ml) 1,000 mls @ 125 mls/hr IV DIRECT SEAN Ceftriaxone Sodium (Rocephin/Ns 2 Gm/100 Ml) 2 gm in 100 mls @ 200 mls/hr IV Q24H SEAN; Protocol Stop: 03/11/21 01:29 Azithromycin (Zithromax/Ns) 500 mg in 250 mls @ 250 mls/hr IV Q24H SEAN; Protocol Stop: 03/11/21 01:59 Magnesium Hydroxide (Magnesium Hydroxide (Mom) Oral Liqd Udc) 30 ml PO Q4H PRN PRN Reason: Constipation Morphine Sulfate (Morphine 2 Mg/1 Ml Inj) 2 mg IV Q4H PRN PRN Reason: Pain, Moderate (4-6) Last Admin: 03/07/21 10:17 Dose: 2 mg Documented by: Morphine Sulfate (Morphine 4 Mg/1 Ml Inj) 4 mg IV Q4H PRN PRN Reason: Pain , Severe (7-10) Ondansetron HCl (Ondansetron 4 Mg/2 Ml Inj) 4 mg IV Q8H PRN PRN Reason: Nausea And Vomiting Sodium Chloride (Sodium Chloride 0.9% 10 Ml Flush Syringe) 10 ml IV BID SEAN Last Admin: 03/07/21 10:17 Dose: 10 ml Documented by: Sodium Chloride (Sodium Chloride 0.9% 10 Ml Flush Syringe) 10 ml IV PRN PRN PRN Reason: LINE FLUSH Physical Examination - Vital Signs Vital Signs: Vital Signs Resp Pulse Ox 18 100 03/06/21 23:30 03/06/21 23:30 - Physical Exam Narrative exam: The patient was not examined during this visit . Results - Laboratory Findings CBC and BMP: 03/08/21 05:35 03/08/21 05:35 Abnormal Lab Findings: Abnormal Labs 03/06/21 03/06/21 03/06/21 23:56 23:56 23:56 RBC 3.63 L [place] % (Auto) 7.4 H Seg Neutrophils % 74.7 H Sodium 125 L Chloride 89.7 L BUN Creatinine 0.5 L Glucose 123 H Magnesium 1.40 L ALT 5 L Alkaline Phosphatase 336 H Ammonia Albumin 3.6 L Urine Creatinine Phenytoin Valproic Acid 03/06/21 03/06/21 03/07/21 23:56 23:56 13:19 RBC [place] % (Auto) Seg Neutrophils % Sodium 134 L D Chloride 97.9 L BUN 4 L Creatinine 0.5 L Glucose Magnesium 1.60 L ALT Alkaline Phosphatase Ammonia 20.0 L Albumin Urine Creatinine Phenytoin 6.4 L Valproic Acid < 2.8 L 03/07/21 Unknown RBC [place] % (Auto) Seg Neutrophils % Sodium Chloride BUN Creatinine Glucose Magnesium ALT Alkaline Phosphatase Ammonia Albumin Urine Creatinine 25.0 H Phenytoin Valproic Acid Assessment and Plan 1. CVA - per notes clinically improved - No evidence of a New CVA on the MRI Brain. 2. No change in Medications have been discussed . 3. Possible EEG if stable patient can have that done out patient if clinically indicated . 4. Call Back with Questions . Dr. Shyam JEWELL
--- NOTE | 2021-03-07 17:44 | Electrocardiograph Report ---
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
--- NOTE | 2021-03-07 17:46 | Magnetic Resonance Report ---
. MR brain wo con INDICATION / CLINICAL INFORMATION: 61 years Female; altered mental status. TECHNIQUE: Multiplanar, multisequence MR images of the brain were obtained. COMPARISON: None available. FINDINGS: BRAIN / INTRACRANIAL CONTENTS: Mild, diffuse cerebral atrophy. There are moderate to marked, confluent areas of increased signal intensity on FLAIR imaging in the w hannah matter of the cerebral hemispheres. These are nonspecific findings and may be related to microan giopathy (hypertension, diabetes, atherosclerosis), given the patient's age. Otherwise, no acute ischemia, acute hemorrhage, or hydrocephalus. CRANIOCERVICAL JUNCTION: No significant abnormality. VASCULAR FLOW-VOIDS: No significant abnormality. ORBITS: No significant abnormality of visualized orbits. SINUSES / MASTOIDS: Mucous retention cysts seen in the frontal sinus medially on the right. There is also desiccated secretions seen in the posterior maxillary antrum on the right. Mild mucosal thickeni ng noted in the ethmoids. ADDITIONAL FINDINGS: None. IMPRESSION: 1. No focal mass, hemorrhage, hydrocephalus, or acute ischemia. Signer Name: Camden Martinez MD, III Signed: 03/07/2021 5:41 PM Workstation Name: [id number]
[2021-03-08] MEDS: cefTRIAXone/NS 2 GM/100 ML 2 GM/100 ML BAG IV SCH (00:37)
[2021-03-08] MEDS: AZITHROMYCIN/NS 500 MG/250 ML 500 MG/250 ML BAG IV SCH (01:53)
[2021-03-08] MEDS: SODIUM CHLORIDE 0.9% 1000 ML 1,000 ML IV SCH (05:32)
[2021-03-08 06:22] LABS: Basophils % (Auto) 0.6 % (0.0-1.8); Hematocrit 30.2 % (30.3-42.9); Lymphocytes # (Auto) 2.1 K/mm3 (1.2-5.4); Lymphocytes % (Auto) 43.3 % (13.4-35.0); Mean Corpuscular HGB Conc 33 % (30-34); Mean Corpuscular Volume 95 fl (79-97); Monocytes # (Auto) 0.4 K/mm3 (0.0-0.8); Monocytes % (Auto) 8.4 % (0.0-7.3); Platelet Count 220 K/mm3 (140-440); Red Blood Count 3.19 M/mm3 (3.65-5.03); Red Cell Distribution Width 13.9 % (13.2-15.2)
[2021-03-08 06:30] LABS: INR 1.02 (0.87-1.13)
[2021-03-08 06:41] LABS: BUN/Creatinine Ratio 10; Blood Urea Nitrogen 4 mg/dL (7-17); Calcium 8.2 mg/dL (8.4-10.2); Hemolysis Index 7
[2021-03-08] MEDS ORDERED: POTASSIUM CHLORIDE ER 20 MEQ TAB PO SCH (09:00)
[2021-03-08] MEDS ORDERED: DIVALPROEX ER 250 MG TAB PO SCH (09:00)
[2021-03-08] MEDS ORDERED: MAGNESIUM SULFATE 4 GM/100 ML BAG IV ONE (10:00)
[2021-03-08] MEDS: DIVALPROEX DR 250 MG TAB PO SCH ×3 (10:21→21:13)
[2021-03-08] MEDS: PHENYTOIN 100 MG CAPSULE.ER PO SCH (10:23)
[2021-03-08] MEDS: amLODIPine 10 MG TAB PO SCH (11:22)
[2021-03-08] MEDS: FOLIC ACID 1 MG TAB PO SCH (11:25)
[2021-03-08] MEDS: levETIRAcetam 500 MG TAB PO SCH ×2 (11:33→21:13)
[2021-03-08] MEDS: LISINOPRIL 40 MG TAB PO SCH (11:39)
[2021-03-08] MEDS: LACOSAMIDE 100 MG TAB PO SCH ×2 (11:40→21:13)
--- NOTE | 2021-03-08 16:00 | Progress Note ---
Assessment and Plan Assessment and plan: #Seizure disorder -Patient with subtherapeutic Depakote & Keppra levels -Depakote, Vimpat, Keppra and phenytoin restarted -will EEG outpatient -Neurology consulted, no further recommendations #Left-sided numbness -Resolved -CT head negative -MRI negative for acute stroke #History CVA -continue Lipitor #Hypomagnesemia #Hypokalemia -will replete and monitor as needed #Hypertension -continue amlodipine and lisinopril #Disposition -PT to evaluate today -Patient prefers home with home health if needed Disposition Plan: Home Total Time Spent with Patient (Minutes): 20 minutes History Interval history: No acute events overnight. Patient reports some numbness in right hand which has been ongoing for months. Numbness has improved without intervention. No other complaints at this time. Hospitalist Physical - Physical exam Narrative exam: GENERAL: Well-developed well-nourished. Lying in bed in no acute distress. CHEST/LUNGS: CTAB on room air HEART/CARDIOVASCULAR: RRR. No murmur, rubs or gallops appreciated. ABDOMEN: +BS. NT/ND. NEURO: No focal motor deficit. EXTREMITIES: No cyanosis, clubbing or edema. PSYCH: Cooperative. - Constitutional Vitals: Temp Pulse Resp BP Pulse Ox 98.3 F 59 L 20 188/111 97 03/08/21 11:58 03/08/21 11:58 03/08/21 11:58 03/08/21 11:58 03/08/21 11:58 General appearance: Present: no acute distress, well-nourished HEART Score - HEART Score Troponin: Troponin T < 0.010 ng/mL (0.00-0.029) 03/06/21 23:56 Results - Labs CBC & Chem 7: 03/08/21 05:35 03/10/21 08:16 Labs: Laboratory Last Values WBC 4.9 K/mm3 (4.5-11.0) 03/08/21 05:35 RBC 3.19 M/mm3 (3.65-5.03) L 03/08/21 05:35 Hgb 10.0 gm/dl (10.1-14.3) L 03/08/21 05:35 Hct 30.2 % (30.3-42.9) L 03/08/21 05:35 MCV 95 fl (79-97) 03/08/21 05:35 MCH 31 pg (28-32) 03/08/21 05:35 MCHC 33 % (30-34) 03/08/21 05:35 RDW 13.9 % (13.2-15.2) 03/08/21 05:35 Plt Count 220 K/mm3 (140-440) 03/08/21 05:35 Lymph % (Auto) 43.3 % (13.4-35.0) H 03/08/21 05:35 [place] % (Auto) 8.4 % (0.0-7.3) H 03/08/21 05:35 Eos % (Auto) 1.0 % (0.0-4.3) 03/08/21 05:35 Baso % (Auto) 0.6 % (0.0-1.8) 03/08/21 05:35 Lymph # (Auto) 2.1 K/mm3 (1.2-5.4) 03/08/21 05:35 [place] # (Auto) 0.4 K/mm3 (0.0-0.8) 03/08/21 05:35 Eos # (Auto) 0.0 K/mm3 (0.0-0.4) 03/08/21 05:35 Baso # (Auto) 0.0 K/mm3 (0.0-0.1) 03/08/21 05:35 Seg Neutrophils % 46.7 % (40.0-70.0) 03/08/21 05:35 Seg Neutrophils # 2.3 K/mm3 (1.8-7.7) 03/08/21 05:35 PT 14.5 Sec. (12.2-14.9) 03/08/21 05:35 INR 1.02 (0.87-1.13) 03/08/21 05:35 APTT 29.7 Sec. (24.2-36.6) 03/06/21 23:56 Thrombin Time 17.2 Sec. (15.1-19.6) 03/06/21 23:56 Sodium 134 mmol/L (137-145) L 03/08/21 05:35 Potassium 3.2 mmol/L (3.6-5.0) L 03/08/21 05:35 Chloride 101.3 mmol/L (98-107) 03/08/21 05:35 Carbon Dioxide 22 mmol/L (22-30) 03/08/21 05:35 Anion Gap 14 mmol/L 03/08/21 05:35 BUN 4 mg/dL (7-17) L 03/08/21 05:35 Creatinine 0.4 mg/dL (0.6-1.2) L 03/08/21 05:35 Estimated GFR > 60 ml/min 03/08/21 05:35 BUN/Creatinine Ratio 10 % 03/08/21 05:35 Glucose 85 mg/dL (65-100) 03/08/21 05:35 POC Glucose 89 mg/dL (70-105) 03/07/21 21:47 Lactic Acid 1.20 mmol/L (0.7-2.0) 03/07/21 01:14 Uric Acid 6.4 mg/dL (3.5-7.6) 03/07/21 01:14 Calcium 8.2 mg/dL (8.4-10.2) L 03/08/21 05:35 Magnesium 1.60 mg/dL (1.7-2.3) L 03/07/21 13:19 Total Bilirubin < 0.20 mg/dL (0.1-1.2) 03/06/21 23:56 AST 13 units/L (5-40) 03/06/21 23:56 ALT 5 units/L (7-56) L 03/06/21 23:56 Alkaline Phosphatase 336 units/L (35-129) H 03/06/21 23:56 Ammonia 20.0 umol/L (25-60) L 03/06/21 23:56 Total Creatine Kinase 69 units/L (30-135) 03/06/21 23:56 CK-MB (CK-2) 1.6 ng/mL (0.0-4.0) 03/06/21 23:56 CK-MB (CK-2) Rel Index 2.3 (0-4) 03/06/21 23:56 Troponin T < 0.010 ng/mL (0.00-0.029) 03/06/21 23:56 Total Protein 6.8 g/dL (6.3-8.2) 03/06/21 23:56 Albumin 3.6 g/dL (3.9-5) L 03/06/21 23:56 Albumin/Globulin Ratio 1.1 % 03/06/21 23:56 TSH 2.710 mlU/mL (0.270-4.200) 03/06/21 23:56 Urine Color Straw (Yellow) 03/07/21 Unknown Urine Turbidity Clear (Clear) 03/07/21 Unknown Urine pH 7.0 (5.0-7.0) 03/07/21 Unknown Ur Specific [place] 1.024 (1.003-1.030) 03/07/21 Unknown Urine Protein <15 mg/dl mg/dL (Negative) 03/07/21 Unknown Urine Glucose (UA) Neg mg/dL (Negative) 03/07/21 Unknown Urine Ketones Neg mg/dL (Negative) 03/07/21 Unknown Urine Blood Neg (Negative) 03/07/21 Unknown Urine Nitrite Neg (Negative) 03/07/21 Unknown Urine Bilirubin Neg (Negative) 03/07/21 Unknown Urine Urobilinogen < 2.0 mg/dL (<2.0) 03/07/21 Unknown Ur Leukocyte Esterase Neg (Negative) 03/07/21 Unknown Urine WBC (Auto) 1.0 /HPF (0.0-6.0) 03/07/21 Unknown Urine RBC (Auto) < 1.0 /HPF (0.0-6.0) 03/07/21 Unknown U Epithel Cells (Auto) 1.0 /HPF (0-13.0) 03/07/21 Unknown Urine Mucus Few /HPF 03/07/21 Unknown Urine Osmolality 284 Mosm/kg 03/07/21 Unknown Urine Creatinine 25.0 mg/dL (0.1-20.0) H 03/07/21 Unknown Urine Sodium 66 mmol/L 03/07/21 Unknown Urine Opiates Screen Presumptive negative 03/07/21 Unknown Urine Methadone Screen Presumptive negative 03/07/21 Unknown Ur Barbiturates Screen Presumptive negative 03/07/21 Unknown Phenytoin 6.4 ug/mL (10.0-20.0) L 03/06/21 23:56 Valproic Acid < 2.8 ug/mL (50-100) L 03/06/21 23:56 Ur Phencyclidine Scrn Presumptive negative 03/07/21 Unknown Ur Amphetamines Screen Presumptive negative 03/07/21 Unknown U Benzodiazepines Scrn Presumptive positive 03/07/21 Unknown Urine Cocaine Screen Presumptive negative 03/07/21 Unknown U Marijuana (THC) Screen Presumptive negative 03/07/21 Unknown Drugs of Abuse Note Disclamer 03/07/21 Unknown Plasma/Serum Alcohol < 0.01 % (0-0.07) 03/06/21 23:56 Microbiology: Microbiology 03/07/21 01:14 Peripheral/Venous Blood Culture - Preliminary NO GROWTH AFTER 24 HOURS 03/07/21 01:14 Peripheral/Venous Blood Culture - Preliminary NO GROWTH AFTER 24 HOURS Erazo/IV: Voiding Method Toilet Active Medications - Current Medications Current Medications: Generic Name Dose Route Start Last Admin Trade Name Freq PRN Reason Stop Dose Admin Acetaminophen 650 mg 03/07/21 01:22 Acetaminophen 325 Mg Tab PO Q4H PRN Pain MILD(1-3)/Fever >100.5/ABRAMS Amlodipine Besylate 10 mg 03/08/21 10:00 03/08/21 11:22 Amlodipine 10 Mg Tab PO 10 mg QDAY SEAN Administration Divalproex Sodium 250 mg 03/08/21 09:00 03/08/21 10:[address] 250 Mg Tab PO 250 mg TID SEAN Administration Folic Acid 1 mg 03/08/21 10:00 03/08/21 11:25 Folic Acid 1 Mg Tab PO 1 mg QDAY SEAN Administration Sodium Chloride 1,000 mls @ 125 mls/hr 03/07/21 01:30 03/08/21 05:32 Nacl 0.9% 1000 Ml IV 125 mls/hr DIRECT SEAN Administration Ceftriaxone Sodium 2 gm in 100 mls @ 200 mls/hr 03/08/21 01:00 03/08/21 00:37 Rocephin/Ns 2 Gm/100 Ml IV 03/11/21 01:29 200 mls/hr Q24H SEAN Administration Protocol Azithromycin 500 mg in 250 mls @ 250 mls/hr 03/08/21 01:00 03/08/21 01:53 Zithromax/Ns IV 03/11/21 01:59 250 mls/hr Q24H SEAN Administration Protocol Lacosamide 200 mg 03/08/21 10:00 03/08/21 11:40 Lacosamide 100 Mg Tab PO 200 mg Q12HR SEAN Administration Levetiracetam 1,000 mg 03/08/21 10:00 03/08/21 11:33 Levetiracetam 500 Mg Tab PO 1,000 mg BID SEAN Administration Lisinopril 40 mg 03/08/21 10:00 03/08/21 11:39 Lisinopril 40 Mg Tab PO 40 mg QDAY SEAN Administration Magnesium Hydroxide 30 ml 03/07/21 01:29 Magnesium Hydroxide (Mom) Oral Liqd Udc PO Q4H PRN Constipation Magnesium Oxide 400 mg 03/08/21 16:00 Magnesium Oxide 400 Mg Tab PO 03/08/21 16:01 ONCE ONE Morphine Sulfate 2 mg 03/07/21 01:22 03/07/21 10:17 Morphine 2 Mg/1 Ml Inj IV 2 mg Q4H PRN Administration Pain, Moderate (4-6) Morphine Sulfate 4 mg 03/07/21 01:29 Morphine 4 Mg/1 Ml Inj IV Q4H PRN Pain , Severe (7-10) Ondansetron HCl 4 mg 03/07/21 01:22 Ondansetron 4 Mg/2 Ml Inj IV Q8H PRN Nausea And Vomiting Phenytoin 300 mg 03/08/21 10:00 03/08/21 10:23 Phenytoin 100 Mg Capsule.Er PO 300 mg QDAY SEAN Administration Sodium Chloride 10 ml 03/07/21 10:00 03/08/21 15:41 Sodium Chloride 0.9% 10 Ml Flush Syringe IV 10 ml BID SEAN Administration Sodium Chloride 10 ml 03/07/21 01:22 Sodium Chloride 0.9% 10 Ml Flush Syringe IV PRN PRN LINE FLUSH
[2021-03-08] MEDS ORDERED: MAGNESIUM OXIDE 400 MG TAB PO ONE (17:00)
[2021-03-08] MEDS: MORPHINE 2 MG/1 ML INJ IV PRN (21:17)
[2021-03-08] MEDS ORDERED: LORazepam 2 MG/ML VIAL IV STA (22:18)
[2021-03-08] MEDS ORDERED: MAGNESIUM SULFATE 1 GM in SODIUM CHLORIDE 0.9% 50 ML IV ONE (22:21)
[2021-03-08] MEDS ORDERED: POTASSIUM CHLORIDE 10 MEQ 10 MEQ/100 ML BAG IV ONE (22:23)
--- NOTE | 2021-03-08 22:56 | Cat Scan Report ---
CT HEAD WITHOUT CONTRAST INDICATION / CLINICAL INFORMATION: R/O CVA. TECHNIQUE: All CT scans at this location are performed using CT dose reduction for ALARA by means of automated e xposure control. COMPARISON: 03/06/2021 FINDINGS: There is no acute intracranial hemorrhage. Ventricles are normal in size without midline shift or mas s effect. Extensive periventricular and central white matter areas of low-attenuation with extension the frontal is bilaterally. This appears similar in distribution to prior examination 2 days prior. ADDITIONAL FINDINGS: None. IMPRESSION: 1. Diffuse periventricular central white matter areas of low-attenuation suggesting chronic small ves miley disease. Patient was recently in ER 2 days prior for similar symptoms. An MRI with diffusion is r ecommended for further evaluation for acute ischemic change. Signer Name: Torin De León MD Signed: 03/08/2021 10:52 PM Workstation Name: [id number]
--- NOTE | 2021-03-09 01:15 | Event Note ---
Date: 03/08/21 Code Met called on patient with known history of seizure disorder who has been on admission for acute encephalopathy, hyponatremia, hypomagnesemia and seizure disorder. She was said to have been having some twitching and repetitive jerking movements on her right upper extremity and also appeared altered. Patient was given 2 mg of IV Ativan. He denies any major complaints and was able to move all extremities. However she had a mild weakness in the right lower extremity. Labs were reviewed, noticed that potassium and magnesium were still low. Potassium and magnesium to be repleted. We will check CT scan of the head stat. We will follow up on chemistry, follow-up on CT scan of the head. Placed on seizure precautions.
[2021-03-09] MEDS: cefTRIAXone/NS 2 GM/100 ML 2 GM/100 ML BAG IV SCH (02:29)
[2021-03-09] MEDS: AZITHROMYCIN/NS 500 MG/250 ML 500 MG/250 ML BAG IV SCH (02:30)
[2021-03-09] MEDS ORDERED: hydrALAZINE 20 MG/1 ML INJ IV ONE (05:50)
[2021-03-09 08:12] LABS: Blood Urea Nitrogen 3 mg/dL (7-17); Calcium 9.2 mg/dL (8.4-10.2); Hemolysis Index 8
[2021-03-09 08:17] LABS: BUN/Creatinine Ratio 6
[2021-03-09] MEDS: DIVALPROEX DR 250 MG TAB PO SCH ×3 (08:58→21:13)
[2021-03-09] MEDS: FOLIC ACID 1 MG TAB PO SCH (09:04)
[2021-03-09] MEDS: levETIRAcetam 500 MG TAB PO SCH ×2 (09:04→21:15)
[2021-03-09] MEDS: LACOSAMIDE 100 MG TAB PO SCH ×2 (09:05→21:16)
[2021-03-09] MEDS: amLODIPine 10 MG TAB PO SCH (09:05)
[2021-03-09] MEDS: LISINOPRIL 40 MG TAB PO SCH (09:05)
[2021-03-09] MEDS: PHENYTOIN 100 MG CAPSULE.ER PO SCH ×2 (09:05→21:15)
--- NOTE | 2021-03-09 10:16 | Progress Note ---
Assessment and Plan Assessment and plan: #Seizure disorder -continue depakote, Vimpat, Keppra -phenytoin increased to BID dosage -repeat CT head after event last night negative -will need EEG outpatient #Left-sided numbness -Resolved -CT head negative -MRI negative for acute stroke #History CVA -continue Lipitor #Hypomagnesemia #Hypokalemia -will replete and monitor as needed #Hypertension -continue amlodipine and lisinopril #Disposition -PT evaluation pending -Patient prefers home with home health if needed Disposition Plan: Pending PT recommendations Total Time Spent with Patient (Minutes): 20 minutes History Interval history: Overnight, patient had seizure. Received [address] head showed findings similar to CT head and admission. Currently patient is having tremors of her left upper extremity. She is alert and oriented denies pain. Hospitalist Physical - Physical exam Narrative exam: GENERAL: Well-developed well-nourished. Lying in bed in no acute distress. CHEST/LUNGS: CTAB on room air HEART/CARDIOVASCULAR: RRR. No murmur, rubs or gallops appreciated. ABDOMEN: +BS. NT/ND. NEURO: Left upper extremity tremor. EXTREMITIES: No cyanosis, clubbing or edema. PSYCH: Cooperative. - Constitutional Vitals: Temp Pulse Resp BP Pulse Ox 98.0 F 66 16 162/121 96 03/09/21 05:06 03/09/21 05:06 03/09/21 05:06 03/09/21 09:05 03/09/21 09:54 General appearance: Present: no acute distress, well-nourished HEART Score - HEART Score Troponin: Troponin T < 0.010 ng/mL (0.00-0.029) 03/06/21 23:56 Results - Labs CBC & Chem 7: 03/08/21 05:35 03/10/21 08:16 Labs: Laboratory Last Values WBC 4.9 K/mm3 (4.5-11.0) 03/08/21 05:35 RBC 3.19 M/mm3 (3.65-5.03) L 03/08/21 05:35 Hgb 10.0 gm/dl (10.1-14.3) L 03/08/21 05:35 Hct 30.2 % (30.3-42.9) L 03/08/21 05:35 MCV 95 fl (79-97) 03/08/21 05:35 MCH 31 pg (28-32) 03/08/21 05:35 MCHC 33 % (30-34) 03/08/21 05:35 RDW 13.9 % (13.2-15.2) 03/08/21 05:35 Plt Count 220 K/mm3 (140-440) 03/08/21 05:35 Lymph % (Auto) 43.3 % (13.4-35.0) H 03/08/21 05:35 [place] % (Auto) 8.4 % (0.0-7.3) H 03/08/21 05:35 Eos % (Auto) 1.0 % (0.0-4.3) 03/08/21 05:35 Baso % (Auto) 0.6 % (0.0-1.8) 03/08/21 05:35 Lymph # (Auto) 2.1 K/mm3 (1.2-5.4) 03/08/21 05:35 [place] # (Auto) 0.4 K/mm3 (0.0-0.8) 03/08/21 05:35 Eos # (Auto) 0.0 K/mm3 (0.0-0.4) 03/08/21 05:35 Baso # (Auto) 0.0 K/mm3 (0.0-0.1) 03/08/21 05:35 Seg Neutrophils % 46.7 % (40.0-70.0) 03/08/21 05:35 Seg Neutrophils # 2.3 K/mm3 (1.8-7.7) 03/08/21 05:35 PT 14.5 Sec. (12.2-14.9) 03/08/21 05:35 INR 1.02 (0.87-1.13) 03/08/21 05:35 APTT 29.7 Sec. (24.2-36.6) 03/06/21 23:56 Thrombin Time 17.2 Sec. (15.1-19.6) 03/06/21 23:56 Sodium 134 mmol/L (137-145) L 03/09/21 07:29 Potassium 3.4 mmol/L (3.6-5.0) L 03/09/21 07:29 Chloride 99.3 mmol/L (98-107) 03/09/21 07:29 Carbon Dioxide 21 mmol/L (22-30) L 03/09/21 07:29 Anion Gap 17 mmol/L 03/09/21 07:29 BUN 3 mg/dL (7-17) L 03/09/21 07:29 Creatinine 0.5 mg/dL (0.6-1.2) L 03/09/21 07:29 Estimated GFR > 60 ml/min 03/09/21 07:29 BUN/Creatinine Ratio 6 % 03/09/21 07:29 Glucose 84 mg/dL (65-100) 03/09/21 07:29 POC Glucose 94 mg/dL (70-105) 03/08/21 22:16 Lactic Acid 1.20 mmol/L (0.7-2.0) 03/07/21 01:14 Uric Acid 6.4 mg/dL (3.5-7.6) 03/07/21 01:14 Calcium 9.2 mg/dL (8.4-10.2) 03/09/21 07:29 Magnesium 1.60 mg/dL (1.7-2.3) L 03/09/21 07:29 Total Bilirubin < 0.20 mg/dL (0.1-1.2) 03/06/21 23:56 AST 13 units/L (5-40) 03/06/21 23:56 ALT 5 units/L (7-56) L 03/06/21 23:56 Alkaline Phosphatase 336 units/L (35-129) H 03/06/21 23:56 Ammonia 20.0 umol/L (25-60) L 03/06/21 23:56 Total Creatine Kinase 69 units/L (30-135) 03/06/21 23:56 CK-MB (CK-2) 1.6 ng/mL (0.0-4.0) 03/06/21 23:56 CK-MB (CK-2) Rel Index 2.3 (0-4) 03/06/21 23:56 Troponin T < 0.010 ng/mL (0.00-0.029) 03/06/21 23:56 Total Protein 6.8 g/dL (6.3-8.2) 03/06/21 23:56 Albumin 3.6 g/dL (3.9-5) L 03/06/21 23:56 Albumin/Globulin Ratio 1.1 % 03/06/21 23:56 TSH 2.710 mlU/mL (0.270-4.200) 03/06/21 23:56 Urine Color Straw (Yellow) 03/07/21 Unknown Urine Turbidity Clear (Clear) 03/07/21 Unknown Urine pH 7.0 (5.0-7.0) 03/07/21 Unknown Ur Specific [place] 1.024 (1.003-1.030) 03/07/21 Unknown Urine Protein <15 mg/dl mg/dL (Negative) 03/07/21 Unknown Urine Glucose (UA) Neg mg/dL (Negative) 03/07/21 Unknown Urine Ketones Neg mg/dL (Negative) 03/07/21 Unknown Urine Blood Neg (Negative) 03/07/21 Unknown Urine Nitrite Neg (Negative) 03/07/21 Unknown Urine Bilirubin Neg (Negative) 03/07/21 Unknown Urine Urobilinogen < 2.0 mg/dL (<2.0) 03/07/21 Unknown Ur Leukocyte Esterase Neg (Negative) 03/07/21 Unknown Urine WBC (Auto) 1.0 /HPF (0.0-6.0) 03/07/21 Unknown Urine RBC (Auto) < 1.0 /HPF (0.0-6.0) 03/07/21 Unknown U Epithel Cells (Auto) 1.0 /HPF (0-13.0) 03/07/21 Unknown Urine Mucus Few /HPF 03/07/21 Unknown Urine Osmolality 284 Mosm/kg 03/07/21 Unknown Urine Creatinine 25.0 mg/dL (0.1-20.0) H 03/07/21 Unknown Urine Sodium 66 mmol/L 03/07/21 Unknown Urine Opiates Screen Presumptive negative 03/07/21 Unknown Urine Methadone Screen Presumptive negative 03/07/21 Unknown Ur Barbiturates Screen Presumptive negative 03/07/21 Unknown Phenytoin 6.4 ug/mL (10.0-20.0) L 03/06/21 23:56 Valproic Acid < 2.8 ug/mL (50-100) L 03/06/21 23:56 Ur Phencyclidine Scrn Presumptive negative 03/07/21 Unknown Ur Amphetamines Screen Presumptive negative 03/07/21 Unknown U Benzodiazepines Scrn Presumptive positive 03/07/21 Unknown Urine Cocaine Screen Presumptive negative 03/07/21 Unknown U Marijuana (THC) Screen Presumptive negative 03/07/21 Unknown Drugs of Abuse Note Disclamer 03/07/21 Unknown Plasma/Serum Alcohol < 0.01 % (0-0.07) 03/06/21 23:56 Microbiology: Microbiology 03/07/21 01:14 Peripheral/Venous Blood Culture - Preliminary NO GROWTH AFTER 48 HOURS 03/07/21 01:14 Peripheral/Venous Blood Culture - Preliminary NO GROWTH AFTER 48 HOURS Erazo/IV: Voiding Method Bedpan Active Medications - Current Medications Current Medications: Generic Name Dose Route Start Last Admin Trade Name Freq PRN Reason Stop Dose Admin Acetaminophen 650 mg 03/07/21 01:22 Acetaminophen 325 Mg Tab PO Q4H PRN Pain MILD(1-3)/Fever >100.5/ABRAMS Amlodipine Besylate 10 mg 03/08/21 10:00 03/09/21 09:05 Amlodipine 10 Mg Tab PO 10 mg QDAY SEAN Administration Divalproex Sodium 250 mg 03/08/21 09:00 03/09/21 08:[address] 250 Mg Tab PO 250 mg TID SEAN Administration Folic Acid 1 mg 03/08/21 10:00 03/09/21 09:04 Folic Acid 1 Mg Tab PO 1 mg QDAY SEAN Administration Sodium Chloride 1,000 mls @ 125 mls/hr 03/07/21 01:30 03/08/21 05:32 Nacl 0.9% 1000 Ml IV 125 mls/hr DIRECT SEAN Administration Ceftriaxone Sodium 2 gm in 100 mls @ 200 mls/hr 03/08/21 01:00 03/09/21 02:29 Rocephin/Ns 2 Gm/100 Ml IV 03/11/21 01:29 200 mls/hr Q24H SEAN Administration Protocol Azithromycin 500 mg in 250 mls @ 250 mls/hr 03/08/21 01:00 03/09/21 02:30 Zithromax/Ns IV 03/11/21 01:59 250 mls/hr Q24H SEAN Administration Protocol Lacosamide 200 mg 03/08/21 10:00 03/09/21 09:05 Lacosamide 100 Mg Tab PO 200 mg Q12HR SEAN Administration Levetiracetam 1,000 mg 03/08/21 10:00 03/09/21 09:04 Levetiracetam 500 Mg Tab PO 1,000 mg BID SEAN Administration Lisinopril 40 mg 03/08/21 10:00 03/09/21 09:05 Lisinopril 40 Mg Tab PO 40 mg QDAY SEAN Administration Magnesium Hydroxide 30 ml 03/07/21 01:29 Magnesium Hydroxide (Mom) Oral Liqd Udc PO Q4H PRN Constipation Morphine Sulfate 2 mg 03/07/21 01:22 03/08/21 21:17 Morphine 2 Mg/1 Ml Inj IV 2 mg Q4H PRN Administration Pain, Moderate (4-6) Morphine Sulfate 4 mg 03/07/21 01:29 Morphine 4 Mg/1 Ml Inj IV Q4H PRN Pain , Severe (7-10) Ondansetron HCl 4 mg 03/07/21 01:22 Ondansetron 4 Mg/2 Ml Inj IV Q8H PRN Nausea And Vomiting Phenytoin 300 mg 03/08/21 10:00 03/09/21 09:05 Phenytoin 100 Mg Capsule.Er PO 300 mg QDAY SEAN Administration Sodium Chloride 10 ml 03/07/21 10:00 03/09/21 09:06 Sodium Chloride 0.9% 10 Ml Flush Syringe IV 10 ml BID SEAN Administration Sodium Chloride 10 ml 03/07/21 01:22 Sodium Chloride 0.9% 10 Ml Flush Syringe IV PRN PRN LINE FLUSH
[2021-03-09] MEDS ORDERED: MAGNESIUM SULFATE 3 GM in SODIUM CHLORIDE 0.9% 100 ML IV ONE (12:00)
[2021-03-09] MEDS: MORPHINE 2 MG/1 ML INJ IV PRN (21:16)
[2021-03-10] MEDS: cefTRIAXone/NS 2 GM/100 ML 2 GM/100 ML BAG IV SCH (01:00)
[2021-03-10] MEDS: AZITHROMYCIN/NS 500 MG/250 ML 500 MG/250 ML BAG IV SCH (01:34)
[2021-03-10] MEDS: SODIUM CHLORIDE 0.9% 1000 ML 1,000 ML IV SCH ×2 (03:58→11:33)
[2021-03-10] MEDS: DIVALPROEX DR 250 MG TAB PO SCH ×2 (09:15→16:16)
[2021-03-10] MEDS: FOLIC ACID 1 MG TAB PO SCH (09:15)
[2021-03-10 09:16] LABS: Blood Urea Nitrogen 3 mg/dL (7-17); Calcium 8.3 mg/dL (8.4-10.2); Hemolysis Index 1
[2021-03-10] MEDS: amLODIPine 10 MG TAB PO SCH (09:16)
[2021-03-10] MEDS: LISINOPRIL 40 MG TAB PO SCH (09:16)
[2021-03-10] MEDS: levETIRAcetam 500 MG TAB PO SCH (09:18)
[2021-03-10] MEDS: PHENYTOIN 100 MG CAPSULE.ER PO SCH (09:19)
[2021-03-10] MEDS: LACOSAMIDE 100 MG TAB PO SCH (09:19)
[2021-03-10] MEDS: MORPHINE 2 MG/1 ML INJ IV PRN ×2 (09:20→17:38)
[2021-03-10 09:22] LABS: BUN/Creatinine Ratio 8
[2021-03-10] MEDS ORDERED: POTASSIUM CHLORIDE ER 20 MEQ TAB PO SCH (10:00)
[2021-03-10] MEDS ORDERED: POTASSIUM PHOSPHATE 30 MMOL in SODIUM CHLORIDE 0.9% 500 ML 500 ML IV ONE (12:00)
--- NOTE | 2021-03-10 13:00 | Discharge Summary ---
Providers - Providers Date of Admission: 03/07/21 08:24 Date of discharge: 03/10/21 Attending physician: IRMA HOLBROOK MD 03/07/21 01:29 Consult to Physician [CONS] Routine Comment: Consulting Provider: AUSTYN CARTER Physician Instructions: Reason For Exam: Altered mental status, Seizure disorder 03/08/21 11:28 Physical Therapy Evaluation and Treat [CONS] Routine Comment: Reason For Exam: assess ambulation 03/10/21 09:18 Consult to Case Management [CONS] Routine Services Needed at Discharge: Home Health Services Notified:: cm Additional Physician Instructions: Patient requesting to go home with home health instead of SNF Primary care physician: [facility] Hospitalization Reason for admission: altered mental status Condition: Stable Hospital course: 61-year-old female history of hypertension, hyperlipidemia and seizure disorder who presented on 03/07 with left-sided weakness. Reported to have an unwitnessed seizure at home with subsequent change in mental status. Labs are notable for hypomagnesemia, hyponatremia and subtherapeutic seizure medication levels. Chest x-ray revealed a right lower lobe pneumonia. She was started on empiric antibiotics. CT head showed diffuse white matter areas of low- attenuation in chronic small vessel disease. CT angio of head and neck showed 30% stenosis in the proximal right internal carotid artery and 40% at the left internal carotid artery. MRI was negative for acute findings. Patient antiseizure medications were restarted. On 03/08 the patient had a seizure. Repeat CT head was unremarkable. Once stable patient was evaluated by physical therapy. It was recommended for discharge to correction facility. Patient declined and was sent home with family with home health. Disposition: 01 HOME / SELF CARE / HOMELESS Final Discharge Diagnosis (Prints w/discharge instructions): Acute metabolic encephalopathy. Seizure. Hypomagnesemia. Hypokalemia. Hyponatremia. Community-acquired pneumonia Time spent for discharge: 20 minutes Core Measure Documentation - Palliative Care Palliative Care/ Comfort Measures: Not Applicable - Core Measures Any of the following diagnoses?: none Exam - Physical Exam Narrative exam: GENERAL: Well-developed well-nourished. Lying in bed in no acute distress. CHEST/LUNGS: CTAB on room air HEART/CARDIOVASCULAR: RRR. No murmur, rubs or gallops appreciated. ABDOMEN: +BS. NT/ND. NEURO: No focal deficits noted. EXTREMITIES: No cyanosis, clubbing or edema. PSYCH: Cooperative. - Constitutional Vitals: Temp Pulse Resp BP Pulse Ox 98.2 F 79 20 177/108 95 03/09/21 21:02 03/09/21 21:02 03/10/21 09:20 03/09/21 21:02 03/09/21 22:25 Plan Care Plan Goals: Continue taking seizure medications. Follow-up with Neurology within the next 2 weeks. Follow up with: PRIMARY CARE, [Primary Care Provider] - 7 Days Prescriptions: AtorvaSTATin [Lipitor] 20 mg PO QHS 30 Days #30 tab amLODIPine 10 mg PO DAILY 30 Days #[address] [Depakote Dr] 250 mg PO TID 30 Days #90 tab Folic Acid 1 mg PO QDAY 30 Days #30 Potassium Chloride [K-Dur] 20 meq PO QDAY 14 Days #14 tablet levETIRAcetam [Keppra TAB] 1,000 mg PO BID 30 Days #60 tab Phenytoin Sodium Extended 300 mg PO BID 30 Days #60 capsule Lacosamide [Vimpat] 200 mg PO BID 30 Days #60 tab lisinopriL [Zestril TAB] 40 mg PO QDAY 30 Days #30 tab
[2021-03-10 16:09] VITALS: BP 177/114
== END 2021-03-10 18:40 | disposition home health service (06) | DRG 100 ==
LOC: ED 23:22 → 3A 03-07 02:18 → OBSVTOIN 03-07 08:24 → 3A 03-09 19:33
PROVIDERS: ADMIT Internal Medicine Geriatric Medicine; ATTEND Student in an Organized Health Care Education/Training Program
DX: G40.909 Epilepsy, unspecified, not intractable, without status epilepticus (principal); J18.9 Pneumonia, unspecified organism; E87.1 Hypo-osmolality and hyponatremia; E83.42 Hypomagnesemia; I10 Essential (primary) hypertension; E78.00 Pure hypercholesterolemia, unspecified; E78.5 Hyperlipidemia, unspecified; Z86.73 Personal history of transient ischemic attack (TIA), and cerebral infarction without residual deficits; E87.6 Hypokalemia
CPT/HCPCS: 36415; 70450; 70496; 70498; 70551; 71045; 80048; 80053; 80164; 80177; 80185; 80307; 80320; 81001; 82140; 82550; 82553; 82570; 82962; 83735; 83935; 84100; 84300; 84443; 84484; 84550; 85025; 85610; 85670; 85730; 87040; 93005; G0378; G0480; J0360; J0456; J0696; J1165; J1953; J2060; J2270; J3475; J3480; J7030; J7040; J7050; Q9967

== ENCOUNTER 2021-06-06 09:57 | Emergency (ER) | payer MEDICARE ==
[2021-06-06] MEDS ORDERED: IBUPROFEN 600 MG TAB PO ONE (11:51)
--- NOTE | 2021-06-06 11:54 | Emergency Department Report ---
ED General Adult HPI - General Chief complaint: Weakness Stated complaint: RHT HAND SWOLLEN X1 WK Time Seen by Provider: 06/06/21 11:45 Source: patient Mode of arrival: Wheelchair Limitations: No Limitations - History of Present Illness Initial comments: Patient presents with her son secondary to right hand pain. Her only complaint is right hand pain. She states it was bothering her about a week ago. She does not recall what happened or how she injured her hand. Her son states that he was called about 3 days ago and stated that she was complaining of right hand pain then. He states that she does have seizures frequently. Her medications are being investigated by her new neurologist. He was concerned that she might of broken her hand. She has broken her arms bilaterally before with seizures. He states that the pain was getting worse and that is why he brought her in today. There was no known seizure. The patient cannot recall all of her seizures. There has been no fevers or chills. There is no cough congestion. There is no vomiting or diarrhea. She denies pain in the right wrist, right elbow, and right shoulder. She is right-hand dominant. The pain is constant and aching and worse with movement. - Related Data Home Medications Medication Instructions Recorded Confirmed Last Taken Duloxetine HCl 20 mg PO QDAY 03/07/21 05/13/21 05/12/21 Gabapentin 300 mg PO BID 03/07/21 05/13/21 05/12/21 Sucralfate [Carafate] 1 gm PO Q6HR 03/07/21 05/13/21 05/12/21 Previous Rx's Medication Instructions Recorded Last Taken Type AtorvaSTATin [Lipitor] 20 mg PO QHS 30 Days #30 tab 03/09/21 05/12/[address] [Depakote Dr] 250 mg PO TID 30 Days #90 tab 03/09/21 05/12/21 Rx Folic Acid 1 mg PO QDAY 30 Days #30 03/09/21 05/12/21 Rx Lacosamide [Vimpat] 200 mg PO BID 30 Days #60 tab 03/09/21 05/12/21 Rx amLODIPine 10 mg PO DAILY 30 Days #30 03/09/21 05/12/21 Rx levETIRAcetam [Keppra TAB] 1,000 mg PO BID 30 Days #60 tab 03/09/21 05/12/21 Rx lisinopriL [Zestril TAB] 40 mg PO QDAY 30 Days #30 tab 03/09/21 05/12/21 Rx Phenytoin Sodium Extended 300 mg PO BID 30 Days #60 capsule 03/10/21 05/12/21 Rx Potassium Chloride [K-Dur] 20 meq PO QDAY 14 Days #14 tablet 03/10/21 03/20/21 Rx Acetaminophen/Codeine [Tylenol 1 tab PO Q6H PRN #10 tab 06/06/21 Unknown Rx /Codeine # 3 tab] Allergies Allergy/AdvReac Type Severity Reaction Status Date / Time No Known Allergies Allergy Verified 06/06/21 10:40 ED Review of Systems ROS: Stated complaint: RHT HAND SWOLLEN X1 WK Other details as noted in HPI Comment: All other systems reviewed and negative Constitutional: denies: fever Eyes: denies: vision change ENT: denies: throat pain Respiratory: denies: cough Cardiovascular: denies: chest pain Endocrine: denies: unexplained weight loss Gastrointestinal: denies: abdominal pain Genitourinary: denies: dysuria Musculoskeletal: as per HPI. denies: back pain Skin: denies: rash Neurological: denies: headache Hematological/Lymphatic: denies: easy bruising ED Past Medical Hx - Past Medical History Hx Hypertension: Yes Hx Seizures: Yes Additional medical history: stroke, - Surgical History Additional Surgical History: 2 arms broken( had repair) - Family History Family history: hypertension - Social History Smoking Status: Never Smoker - Medications Home Medications: Home Medications Medication Instructions Recorded Confirmed Last Taken Type Duloxetine HCl 20 mg PO QDAY 03/07/21 05/13/21 05/12/21 History Gabapentin 300 mg PO BID 03/07/21 05/13/21 05/12/21 History Sucralfate [Carafate] 1 gm PO Q6HR 03/07/21 05/13/21 05/12/21 History AtorvaSTATin [Lipitor] 20 mg PO QHS 30 Days #30 tab 03/09/21 05/13/21 05/12/[address] [Depakote Dr] 250 mg PO TID 30 Days #90 tab 03/09/21 05/13/21 05/12/21 Rx Folic Acid 1 mg PO QDAY 30 Days #30 03/09/21 05/13/21 05/12/21 Rx Lacosamide [Vimpat] 200 mg PO BID 30 Days #60 tab 03/09/21 05/13/21 05/12/21 Rx amLODIPine 10 mg PO DAILY 30 Days #30 03/09/21 05/13/21 05/12/21 Rx levETIRAcetam [Keppra TAB] 1,000 mg PO BID 30 Days #60 tab 03/09/21 05/13/21 05/12/21 Rx lisinopriL [Zestril TAB] 40 mg PO QDAY 30 Days #30 tab 03/09/21 05/13/21 05/12/21 Rx Phenytoin Sodium Extended 300 mg PO BID 30 Days #60 capsule 03/10/21 05/13/21 05/12/21 Rx Potassium Chloride [K-Dur] 20 meq PO QDAY 14 Days #14 tablet 03/10/21 05/13/21 03/20/21 Rx Acetaminophen/Codeine [Tylenol 1 tab PO Q6H PRN #10 tab 06/06/21 Unknown Rx /Codeine # 3 tab] ED Physical Exam - General Limitations: No Limitations, Other (Pulse ox noted and normal. She is frail) General appearance: alert, in no apparent distress - Head Head exam: Present: atraumatic, normocephalic - Eye Eye exam: Present: normal appearance, EOMI. Absent: scleral icterus - ENT ENT exam: Present: normal orophraynx, normal external ear exam - Neck Neck exam: Present: normal inspection. Absent: meningismus - Respiratory Respiratory exam: Present: normal lung sounds bilaterally. Absent: respiratory distress - Cardiovascular Cardiovascular Exam: Present: regular rate, normal rhythm - GI/Abdominal GI/Abdominal exam: Present: soft - Extremities Exam Extremities exam: Present: full ROM (Limited range of motion of the right shoulder which the son states is chronic), normal capillary refill, other (Patient has edema and tenderness to the dorsum of the right hand. This is in the ulnar and proximal distribution. There is no obvious deformity. She has limited range of motion of the hand. There is good range of motion of the right wrist. She has good range of motion of the right elbow.) - Back Exam Back exam: Absent: CVA tenderness (R), CVA tenderness (L) - Neurological Exam Neurological exam: Present: alert, oriented X3, CN II-XII intact, reflexes normal - Psychiatric Psychiatric exam: Present: normal affect, normal mood - Skin Skin exam: Present: warm, dry ED Course Vital Signs 06/06/21 10:41 Temperature 97.9 F Pulse Rate 60 Respiratory 15 Rate Blood Pressure 211/126 O2 Sat by Pulse 98 Oximetry - Reevaluation(s) Reevaluation #1: 06/06/21 11:54 X-rays were ordered. Old records reviewed. Reevaluation #2: 06/06/21 12:40 Radiographs were reviewed. Patient was discharged. ED Medical Decision Making - Radiology Data Radiology results: report reviewed - Medical Decision Making Patient presents with right hand pain and swelling. There was no known trauma but the patient does have seizures frequently. These seizures are being evaluated by the patient's neurologist. She certainly could have fallen and injured her right hand. This is happened to her before. There was no radiographic evidence of dislocation. She does have osteopenia. An occult or hidden fracture could certainly be there given her bone density. Patient was placed in a splint for comfort. She was instructed to rest, ice, elevate. There is no warmth or erythema suggestive of cellulitis. She had no skin breakdown suggestive of infectious process. Critical Care Time: No Critical care attestation.: If time is entered above; I have spent that time in minutes in the direct care of this critically ill patient, excluding procedure time. ED Disposition Clinical Impression: Right hand pain Disposition: HOME / SELF CARE / HOMELESS Is pt being admited?: No Condition: Stable Instructions: How to Use Cold Therapy, Pain Without a Known Cause Additional Instructions: Ice and elevate. Wear the splint for comfort. Return for problems. Follow-up with the family doctor or the referral physicians as recommended. Prescriptions: Acetaminophen/Codeine [Tylenol /Codeine # 3 tab] 1 tab PO Q6H PRN #10 tab PRN Reason: Pain, Moderate (4-6) Referrals: PRIMARY CARE, [Primary Care Provider] - 3-5 Days FADY GARZA MD [Staff Physician] - 3-5 Days SHANNON UMAÑA MD [Staff Physician] - 3-5 Days
--- NOTE | 2021-06-06 12:52 | XRay Report ---
RIGHT HAND 4 VIEWS INDICATION: fall. COMPARISON: None. IMPRESSION: There is moderate to severe soft tissue swelling on the dorsum of the hand. The bony st ructures are osteopenic. No displaced fracture or bone lesion is detected on x-ray. There are advance d degenerative changes at the base of the thumb. The remaining joint spaces are unremarkable. Chronic healed fracture of the fifth metacarpal neck is suspected. Signer Name: Kalpesh Etienne Jr, MD Signed: 06/06/2021 12:48 PM Workstation Name: [id number]
[2021-06-06 14:44] VITALS: BP 180/96
== END 2021-06-06 14:42 | disposition home or self-care (01) ==
LOC: ED 09:57
DX: M79.641 Pain in right hand (principal)
CPT/HCPCS: 99283; 99284